=== PATIENT | female | born 1990 | race Caucasian/White ===

== ENCOUNTER 2016-10-18 13:06 | Emergency (ER) | payer OTHER ==
[2016-10-18 13:48] VITALS: BP 113/79
--- NOTE | 2016-10-18 14:37 | UC ---
Knee Pain HPI - HPI Summary HPI Summary: Pt has history of L knee sprain, sees Ortho up in [place]. 4 days ago was stepping out of bed and felt/heard "pop" in L knee, followed by rapid swelling and bruising. Also has numbness and tingling in L [place] and toes. Saw ortho the day it happened and had x-ray. Needs note for missing work yesterday. - History of Current Complaint Chief Complaint: UCLowerExtremity Stated Complaint: KNEE PAIN Time Seen by Provider: 10/18/16 14:10 Hx Obtained From: Patient Hx Last Menstrual Period: tubal ?: No Onset/Duration: Sudden Onset Severity Initially: Mild Severity Currently: Moderate Character: Dull, Aching Aggravating Factor(s): Movement, Weight Bearing Associated Signs And Symptoms: Positive: Swelling, Bruising Able to Bear Weight: Yes - Allergies/Home Medications Allergies/Adverse Reactions: Allergies Allergy/AdvReac Type Severity Reaction Status Date / Time Erythromycin Allergy Mild Rash Verified 10/18/16 13:48 Penicillins Allergy Mild Rash Verified 10/18/16 13:48 Amoxicillin Allergy Rash Verified 10/18/16 13:48 PMH/Surg Hx/FS Hx/Imm Hx GI/ History Of: Denies: Kidney Stones Psychological History Of: Reports: Anxiety, Depression - Surgical History Surgical History: Yes Surgery Procedure, Year, and Place: , tubal ligation, 2 prior pregnancies - Family History Known Family History: Positive: None - reviewed & noncontributory - Social History 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 Lives: With Family Alcohol Use: Occasionally Substance Use Type: None Smoking Status (MU): Never Smoked Tobacco Review of Systems Constitutional: Negative Skin: Negative Eyes: Negative ENT: Negative Respiratory: Negative Cardiovascular: Negative Gastrointestinal: Negative Genitourinary: Negative Motor: Negative Neurovascular: Negative Musculoskeletal: Arthralgia, Edema Neurological: Negative Psychological: Negative All Other Systems Reviewed And Are Negative: Yes Physical Exam Triage Information Reviewed: Yes Appearance: Well-Appearing, No Pain Distress, Obese Vital Signs: Initial Vital Signs Temp 97.3 F 10/18/16 13:42 Pulse 88 10/18/16 13:42 Resp 28 10/18/16 13:42 BP 113/79 10/18/16 13:42 Pulse Ox 100 10/18/16 13:42 Vital Signs Reviewed: Yes Eye Exam: Normal Eyes: Positive: Conjunctiva Clear ENT Exam: Normal ENT: Positive: Normal ENT inspection, Hearing grossly normal, Pharynx normal, TMs normal Dental Exam: Normal Neck exam: Normal Neck: Positive: Supple, Nontender, No Lymphadenopathy Respiratory Exam: Normal Respiratory: Positive: Chest non-tender, Lungs clear, Normal breath sounds, No respiratory distress, No accessory muscle use Cardiovascular Exam: Normal Cardiovascular: Positive: RRR, No Murmur Musculoskeletal Exam: Other - swelling, medial bruising on L knee Musculoskeletal: Positive: Strength Intact, ROM Intact Neurological Exam: Normal Psychological Exam: Normal Skin Exam: Normal Knee Pain Course/Dx - Differential Dx/Diagnosis Provider Diagnoses: L knee sprain Discharge - Discharge Plan Condition: Stable Disposition: HOME Patient Education Materials: Knee Sprain (ED) Forms: *Work Release Referrals: Non Staff,Doctor [Primary Care Provider] - Additional Instructions: Wear your brace, take ibuprofen 600mg three times per day, and follow up with your orthopedist this Monday. Given all the swelling and bruising, you may need another MRI to look at your ligaments.
== END 2016-10-18 14:33 | disposition home or self-care (01) ==
LOC: UCEAST 13:06
DX: M23.8X2 Other internal derangements of left knee (principal)
CPT/HCPCS: 99211; G0463

== ENCOUNTER 2017-04-17 08:04 | Emergency (ER) | payer OTHER ==
[2017-04-17 08:43] VITALS: BP 113/87
== END 2017-04-17 09:01 | disposition left against medical advice (07) ==
LOC: ED 08:04
DX: R07.9 Chest pain, unspecified (principal); Z53.21 Procedure and treatment not carried out due to patient leaving prior to being seen by health care provider
CPT/HCPCS: 93005; 99282

== ENCOUNTER 2017-08-07 10:14 | Emergency (ER) | payer OTHER ==
--- NOTE | 2017-08-07 11:28 | UC ---
Dizzy HPI HPI Summary: Vertigo ( sensation of movement when she looks in different directions) began on Monday [facility] rx with antivert but has not pickle solution maker his medications yet---Began with a pain in sternum and left breast at 3pm today has not change movement, rest ,deep breath or activity does not change the pain---has been on buspar and neurontin for a couple of year - History Of Current Complaint Hx Obtained From: Patient Hx Last Menstrual Period: tubal ?: No Onset/Duration: Gradual Onset, Lasting Days, Worse Since - 3 am today Timing: Constant Severity Initially: Moderate Severity Currently: Moderate Character: Head Spinning, Room Spinning Aggravating Factor(s): Change In Head Position Alleviating Factor(s): Nothing Associated Signs And Symptoms: Positive: Vomiting - one time on monday, Chest Pain <Ayanna Robert - Last Filed: 08/07/17 12:36> <Aparna Lock - Last Filed: 08/07/17 13:58> - History Of Current Complaint Chief Complaint: UCRespiratory Stated Complaint: CHEST PAIN, DIZZINESS Time Seen by Provider: 08/07/17 10:40 - Allergies/Home Medications Allergies/Adverse Reactions: Allergies Allergy/AdvReac Type Severity Reaction Status Date / Time Erythromycin Allergy Mild Rash Verified 04/17/17 08:34 Penicillins Allergy Mild Rash Verified 04/17/17 08:34 Amoxicillin Allergy Rash Verified 04/17/17 08:34 Home Medications: Home Medications metFORMIN* [Glucophage 500 MG TAB *] 500 mg PO BID 08/07/17 [History Confirmed 08/07/17] PMH/Surg Hx/FS Hx/Imm Hx Previously Healthy: No Psychological History: Anxiety - Surgical History Surgical History: Yes Surgery Procedure, Year, and Place: , tubal ligation, 2 prior pregnancies - Family History Known Family History: Positive: None - reviewed & noncontributory - Social History Occupation: Employed Full-time Lives: With Family Alcohol Use: Rare Substance Use Type: None Smoking Status (MU): Never Smoked Tobacco <Ayanna Robert - Last Filed: 08/07/17 12:36> Review of Systems Constitutional: Negative Skin: Negative Eyes: Other - vertigo with eye movement ENT: Negative Respiratory: Negative Cardiovascular: Chest Pain Gastrointestinal: Negative Genitourinary: Negative Motor: Negative Neurovascular: Negative Musculoskeletal: Negative Neurological: Negative Psychological: Negative Is Patient Immunocompromised?: No All Other Systems Reviewed And Are Negative: Yes <Ayanna Robert - Last Filed: 08/07/17 12:36> Physical Exam Triage Information Reviewed: Yes Appearance: No Pain Distress, Well-Nourished Vital Signs: Initial Vital Signs Temp 98.1 F 08/07/17 10:18 Pulse 79 08/07/17 10:18 Resp 18 08/07/17 10:18 BP 118/70 08/07/17 10:18 Pulse Ox 100 08/07/17 10:18 Vital Signs Reviewed: Yes Eye Exam: Normal Eyes: Positive: Conjunctiva Clear, Other: - jt, eomi ENT Exam: Normal ENT: Positive: Normal ENT inspection, Hearing grossly normal, Pharynx normal, TMs normal. Negative: Nasal congestion, Nasal drainage, Tonsillar swelling, Tonsillar exudate, Trismus, Muffled voice, Hoarse voice Dental Exam: Normal Neck exam: Normal Neck: Positive: Supple, Nontender, No Lymphadenopathy Respiratory Exam: Normal Respiratory: Positive: Chest non-tender, Lungs clear, Normal breath sounds, No respiratory distress, No accessory muscle use Cardiovascular Exam: Normal Cardiovascular: Positive: RRR, No Murmur, Pulses Normal, Brisk Capillary Refill Musculoskeletal Exam: Normal Musculoskeletal: Positive: Strength Intact, ROM Intact, No Edema Neurological Exam: Normal Neurological: Positive: Alert, Muscle Tone Normal Psychological Exam: Normal Skin Exam: Normal <Ayanna Robert - Last Filed: 08/07/17 12:36> Vital Signs: Initial Vital Signs Temp 98.1 F 08/07/17 10:18 Pulse 79 08/07/17 10:18 Resp 18 08/07/17 10:18 BP 118/70 08/07/17 10:18 Pulse Ox 100 08/07/17 10:18 <Aparna Lock - Last Filed: 08/07/17 13:58> Diagnostics - Radiology No standard instances Xray Interpretation: No Acute Changes Radiology Interpretation Completed By: Radiologist - EKG Cardiac Rate: NL Cardiac Rhythm: Sinus: Normal - 1 degree av block Ectopy: None ST Segment: Normal <Ayanna Robert - Last Filed: 08/07/17 12:36> Dizzy Course/Dx - Course Course Of Treatment: to ed for further evaluation of chest pain - Differential Dx/Diagnosis Provider Diagnoses: Chest pain <Ayanna Robert - Last Filed: 08/07/17 12:36> Discharge <Ayanna Robert - Last Filed: 08/07/17 12:36> <Aparna Lock - Last Filed: 08/07/17 13:58> - Discharge Plan Condition: Stable Disposition: HOME Patient Education Materials: Chest Pain (ED), Vertigo (ED) Forms: *Work Release Referrals: Laura RHODES,[place] [Primary Care Provider] - Additional Instructions: We are recommending treatment in the emergency department for further evaluation of your chest pain Attestation Statement User Type: Provider - I was available for consult. This patient was seen by the [facility]. The patient was not presented to, seen by, or examined by me. -Alvarado <Aparna Lock - Last Filed: 08/07/17 13:58>
--- NOTE | 2017-08-07 11:51 | RAD ---
HISTORY: Chest pain COMPARISONS: None VIEWS: 4: Frontal dual-energy and lateral views of the chest. FINDINGS: CARDIOMEDIASTINAL SILHOUETTE: The cardiomediastinal silhouette is normal. EUN: The eun are normal. PLEURA: The costophrenic angles are sharp. No pleural abnormalities are noted. LUNG PARENCHYMA: The lungs are clear. ABDOMEN: The upper abdomen is clear. There is no subphrenic gas. BONES AND SOFT TISSUES: No bone or soft tissue abnormalities are noted. OTHER: None. IMPRESSION: NO ACTIVE CARDIOPULMONARY DISEASE.
[2017-08-07 12:23] VITALS: BP 116/80
== END 2017-08-07 12:35 | disposition home or self-care (01) ==
LOC: UCEAST 10:14
DX: R07.9 Chest pain, unspecified (principal); Z88.0 Allergy status to penicillin; Z88.1 Allergy status to other antibiotic agents; R94.31 Abnormal electrocardiogram [ECG] [EKG]
CPT/HCPCS: 71020; 93005; 99212; G0463

== ENCOUNTER 2017-08-07 14:40 | Emergency (ER) | payer OTHER ==
[2017-08-07] MEDS ORDERED: Aspirin Low Dose CHEW TAB* 81 MG PO ONE (16:36)
[2017-08-07 17:30] LABS: Hematocrit 42 % (35-47); Mean Corpuscular HGB Conc 33 g/dl (31-36); Mean Corpuscular Hemoglobin 29 pg (27-31); Mean Corpuscular Volume 87 fL (80-97); Mean Platelet Volume 10 um3 (7.4-10.4); Red Blood Count 4.83 10^6/ul (4.0-5.4); Red Cell Distribution Width 14 % (10.5-15)
[2017-08-07 17:41] LABS: Albumin 4.5 g/dL (3.2-5.2); BUN/Creatinine Ratio 15.7 (8-20); Calcium 9.6 mg/dL (8.6-10.3); EGFR African American 130.1 (>60); EGFR Non-African American 101.1 (>60); Globulin 3.4 g/dL (2-4); Total Bilirubin 0.3 mg/dL (0.2-1.0); Total Protein 7.9 g/dL (6.4-8.9)
[2017-08-07 18:39] LABS: Potassium 3.9 mmol/L (3.5-5.0)
[2017-08-07] MEDS ORDERED: NS 0.9% 1000 ML* 1,000 ML IV ONE (19:41)
[2017-08-07] MEDS ORDERED: Meclizine TAB* 12.5 MG PO ONE (19:41)
--- NOTE | 2017-08-07 20:02 | RAD ---
Indication: Chest pain, dizziness. Comparison: No relevant prior exams available on the [facility] PACS for comparison. Technique: Noncontrast CT vertex of skull through foramen magnum. Report: The sulci, ventricles, and basal cisterns are normal for age. Workman matter white matter differentiation is preserved without evidence for edema. No intra or extra axial hemorrhage, mass, or fluid collection detected. Unremarkable visualized orbital contents. Unremarkable calvarium and skull base. Unremarkable scalp. The visualized paranasal sinuses and mastoid air spaces are clear. IMPRESSION: Negative unenhanced head CT.
[2017-08-07] MEDS ORDERED: Ondansetron ODT TAB* 4 MG PO ONE (21:22)
[2017-08-07] MEDS ORDERED: Ondansetron ODT TAB* 4 MG ONE (21:24)
[2017-08-07 21:30] VITALS: BP 103/51
--- NOTE | 2017-08-08 00:30 | ED ---
Steffen Blum Nikita, scribed for Kraig Melendez MD on 08/07/17 at 1943 . Complex/Multi-Sys Presentation - HPI Summary HPI Summary: This patient is a 27 year old F presenting to ED with a chief complaint of CP since last night. Pt states it has gotten better since staying in the ED. The CC is described as sharp and in the mid chest area near the breast. Symptoms aggravated by sneezing. Symptoms alleviated by antivert (04/03 to 01/02). Patient reports dizziness (uneasy and light-headed; aggravated by moving her eyes; since 3 days ago), fever, nausea, frontal POLK (intermittent since 3 days ago), and hot spells. Patient denies vomiting, ear ache, rhinorrhea, abdominal pain, urinary symptoms and SOB. LMP ended 1.5 weeks ago. [facility] Pt went to [facility] earlier today. - History Of Current Complaint Chief Complaint: EDChestPainROMI Time Seen by Provider: 08/07/17 16:59 Hx Obtained From: Patient Onset/Duration: Sudden Onset, Lasting Days, Still Present Timing: Constant, Days Severity Currently: Moderate Severity Initially: Moderate Location: Pain At: - CP (mid chest near the breast) Character: Sharp Aggravating Factor(s): sneezing Alleviating Factor(s): antivert Associated Signs And Symptoms: Positive: Other - Patient reports dizziness ( uneasy and light-headed; aggravated by moving her eyes; since 3 days ago), fever , nausea, frontal POLK (intermittent since 3 days ago), and hot spells. Patient denies vomiting, ear ache, rhinorrhea, abdominal pain, urinary symptoms and SOB. - Allergies/Home Medications Allergies/Adverse Reactions: Allergies Allergy/AdvReac Type Severity Reaction Status Date / Time Erythromycin Allergy Mild Rash Verified 04/17/17 08:34 Penicillins Allergy Mild Rash Verified 04/17/17 08:34 Amoxicillin Allergy Rash Verified 04/17/17 08:34 PMH/Surg Hx/FS Hx/Imm Hx Respiratory History: Reports: Hx Asthma History: Reports: Hx Kidney Infection - 4 infections Denies: Hx Kidney Stones Psychiatric History: Reports: Hx Anxiety, Hx Depression Denies: Hx Eating Disorder, Hx of Violent Episodes Against Others - Surgical History Surgery Procedure, Year, and Place: , tubal ligation, 2 prior pregnancies Infectious Disease History: No Infectious Disease History: Denies: Hx of Known/Suspected MRSA, Traveled Outside the [place] in Last 30 Days - Family History Known Family History: Positive: Other Family History: stroke - Social History Alcohol Use: Occasionally Hx Substance Use: No Substance Use Type: Reports: None Hx Tobacco Use: No Smoking Status (MU): Never Smoked Tobacco Review of Systems Positive: Fever, Other - hot spells Positive: Other - denies rhinorrhea. Negative: Ear Ache Negative: Shortness Of Breath Positive: Nausea. Negative: Abdominal Pain, Vomiting Positive: no symptoms reported Neurological: Other - dizziness (uneasy and light-headed; aggravated by moving her eyes; since 3 days ago) Positive: Headache - frontal All Other Systems Reviewed And Are Negative: Yes Physical Exam Triage Information Reviewed: Yes Vital Signs On Initial Exam: Initial Vitals Temp Pulse Resp BP Pulse Ox 98.2 F 88 20 114/79 98 08/07/17 15:06 08/07/17 15:06 08/07/17 15:06 08/07/17 15:06 08/07/17 15:06 Vital Signs Reviewed: Yes Appearance: Positive: Well-Appearing, No Pain Distress Skin: Positive: Warm, Skin Color Reflects Adequate Perfusion, Dry Head/Face: Positive: Normal Head/Face Inspection Eyes: Positive: EOMI, YING ENT: Positive: Normal ENT inspection Neck: Positive: Supple, Nontender Respiratory/Lung Sounds: Positive: Clear to Auscultation, Breath Sounds Present Cardiovascular: Positive: RRR Abdomen Description: Positive: Nontender, Soft Bowel Sounds: Positive: Present Musculoskeletal: Positive: Normal, Strength/ROM Intact Neurological: Positive: Normal, Sensory/Motor Intact, Alert, Oriented to Person Place, Time, Other - No focal neurological deficit Psychiatric: Positive: Affect/Mood Appropriate - [place] Coma Scale Coma Scale Total: 15 Diagnostics - Vital Signs Vital Signs Temp Pulse Resp BP Pulse Ox 08/07/17 18:14 86 27 95 08/07/17 15:06 98.2 F 88 20 114/79 98 - Laboratory Lab Results: Lab Results 08/07/17 08/07/17 08/07/17 Range/Units 17:10 17:10 17:10 WBC 9.0 (3.5-10.8) 10^3/ul RBC 4.83 (4.0-5.4) 10^6/ul Hgb 14.0 (12.0-16.0) g/dl Hct 42 (35-47) % MCV 87 (80-97) fL MCH 29 (27-31) pg MCHC 33 (31-36) g/dl RDW 14 (10.5-15) % Plt Count 255 (150-450) 10^3/ul MPV 10 (7.4-10.4) um3 Neut % (Auto) 65.8 (38-83) % Lymph % (Auto) 23.4 L (25-47) % [place] % (Auto) 7.9 (1-9) % Eos % (Auto) 2.2 (0-6) % Baso % (Auto) 0.7 (0-2) % Absolute Neuts (auto) 5.9 (1.5-7.7) 10^3/ul Absolute Lymphs (auto) 2.1 (1.0-4.8) 10^3/ul Absolute Monos (auto) 0.7 (0-0.8) 10^3/ul Absolute Eos (auto) 0.2 (0-0.6) 10^3/ul Absolute Basos (auto) 0.1 (0-0.2) 10^3/ul Absolute Nucleated RBC 0 10^3/ul Nucleated RBC % 0.1 D-Dimer, Quantitative (Less Than 230) ng/mL Sodium 136 (133-145) mmol/L Potassium 3.9 (3.5-5.0) mmol/L Chloride 104 (101-111) mmol/L Carbon Dioxide 25 (22-32) mmol/L Anion Gap 7 (2-11) mmol/L BUN 11 (6-24) mg/dL Creatinine 0.70 (0.51-0.95) mg/dL Est GFR ( Amer) 130.1 (>60) Est GFR (Non-Af Amer) 101.1 (>60) BUN/Creatinine Ratio 15.7 (8-20) Glucose 96 (70-100) mg/dL Lactic Acid 1.5 (0.5-2.0) mmol/L Calcium 9.6 (8.6-10.3) mg/dL Total Bilirubin 0.30 (0.2-1.0) mg/dL AST 37 (13-39) U/L ALT 66 H (7-52) U/L Alkaline Phosphatase 33 L (34-104) U/L Troponin I 0.00 (<0.04) ng/mL Total Protein 7.9 (6.4-8.9) g/dL Albumin 4.5 (3.2-5.2) g/dL Globulin 3.4 (2-4) g/dL Albumin/Globulin Ratio 1.3 (1-3) //17 Range/Units 17:10 WBC (3.5-10.8) 10^3/ul RBC (4.0-5.4) 10^6/ul Hgb (12.0-16.0) g/dl Hct (35-47) % MCV (80-97) fL MCH (27-31) pg MCHC (31-36) g/dl RDW (10.5-15) % Plt Count (150-450) 10^3/ul MPV (7.4-10.4) um3 Neut % (Auto) (38-83) % Lymph % (Auto) (25-47) % [place] % (Auto) (1-9) % Eos % (Auto) (0-6) % Baso % (Auto) (0-2) % Absolute Neuts (auto) (1.5-7.7) 10^3/ul Absolute Lymphs (auto) (1.0-4.8) 10^3/ul Absolute Monos (auto) (0-0.8) 10^3/ul Absolute Eos (auto) (0-0.6) 10^3/ul Absolute Basos (auto) (0-0.2) 10^3/ul Absolute Nucleated RBC 10^3/ul Nucleated RBC % D-Dimer, Quantitative < 200 (Less Than 230) ng/mL Sodium (133-145) mmol/L Potassium (3.5-5.0) mmol/L Chloride (101-111) mmol/L Carbon Dioxide (22-32) mmol/L Anion Gap (2-11) mmol/L BUN (6-24) mg/dL Creatinine (0.51-0.95) mg/dL Est GFR ( Amer) (>60) Est GFR (Non-Af Amer) (>60) BUN/Creatinine Ratio (8-20) Glucose (70-100) mg/dL Lactic Acid (0.5-2.0) mmol/L Calcium (8.6-10.3) mg/dL Total Bilirubin (0.2-1.0) mg/dL AST (13-39) U/L ALT (7-52) U/L Alkaline Phosphatase (34-104) U/L Troponin I (<0.04) ng/mL Total Protein (6.4-8.9) g/dL Albumin (3.2-5.2) g/dL Globulin (2-4) g/dL Albumin/Globulin Ratio (1-3) Result Diagrams: 08/07/17 17:10 08/07/17 17:10 Lab Statement: Any lab studies that have been ordered have been reviewed, and results considered in the medical decision making process. - CT Brain CT CT Interpretation Completed By: Radiologist - Negative unenhanced head CT. ED physician has reveiwed this radiology report and agrees. - EKG 1535 Cardiac Rate: NL EKG Rhythm: Sinus Rhythm - [address] Segment: Normal Ectopy: None EKG Interpretation: AK interval borderline prolongation at 207 Re-Evaluation - Re-Evaluation First Eval Re-Evaluation Time: 21:19 Comment: Pt wanted to leave prior to re-eval. Pt reports she is still dizzy. Discussed with pt of a possible stroke and she needs an MRI to be sure. Complex Multi-Symp Course/Dx Assessment/Plan: This patient is a 27 year old F presenting to ED with a chief complaint of CP since last night. Pt states it has gotten better since staying in the ED. The CC is described as sharp and in the mid chest area near the breast. Symptoms aggravated by sneezing. Symptoms alleviated by antivert (04/03 to 01/02). Patient reports dizziness (uneasy and light-headed; aggravated by moving her eyes; since 3 days ago), fever, nausea, frontal POLK (intermittent since 3 days ago), and hot spells. Patient denies vomiting, ear ache, rhinorrhea , abdominal pain, urinary symptoms and SOB. Medications reviewed. Allergies noted. Brain CT reveals negative unenhanced head CT. ED physician has reveiwed this radiology report and agrees. EKG reveals NSR at 78 bpm, nml ST, no ectopy, and AK interval borderline prolongation at 207. In the ED course, pt was given fluids, antivert, and ASA. Pt will be discharged. Pt is agreeable with this plan. DISCUSSED RESULTS WITH PATIENT. STILL HAS DIZZINESS AFTER MECLIZINE. NO FOCAL NEUROLOGIC DEFICIT. DISCUSSED THAT DIZZINESS CAN BE SYMPTOM OF A STROKE AND AN MRI BRAIN MAY NEED TO BE DONE TO FIND THE STROKE. PATIENT WISHED TO GO HOME. RX ZOFRAN FOR THE NAUSEA. F/U WITH PMD; RETURN IF WORSE OR CONCERNS. I DISCUSSED RETURNING TO THE ED IF THE DIZZINESS DOES NOT RESOLVE OR WORSENS FOR MRI/FURTHER EVALUATION. - Diagnoses Provider Diagnoses: Chest pain, Dizziness Discharge - Discharge Plan Condition: Stable Disposition: HOME Prescriptions: Ondansetron ODT TAB* [Zofran 4 MG Odt TAB*] 4 mg PO Q6H PRN #10 tab.odt PRN Reason: Nausea Patient Education Materials: Chest Pain (ED), Dizziness (ED) Referrals: Laura RHODES,[place] [Primary Care Provider] - Additional Instructions: FOLLOW UP WITH YOUR DOCTOR. IF YOUR DIZZINESS DOES NOT IMPROVE, YOU MAY NEED A BRAIN MRI TO EVALUATE FOR A STROKE. RETURN TO THE EMERGENCY DEPARTMENT FOR ANY WORSENING OF YOUR CONDITION; CONTINUED OR WORSE DIZZINESS, CHEST PAIN, SHORTNESS OF BREATH, WEAKNESS, NUMBNESS OR QUESTIONS OR CONCERNS. The documentation as recorded by the Steffen lenz Nikita accurately reflects the service I personally performed and the decisions made by me, Kraig Melendez MD.
== END 2017-08-07 21:30 | disposition home or self-care (01) ==
LOC: ED 14:40
DX: R07.9 Chest pain, unspecified (principal); R42 Dizziness and giddiness; Z88.1 Allergy status to other antibiotic agents; Z88.0 Allergy status to penicillin; J45.909 Unspecified asthma, uncomplicated; R11.0 Nausea
CPT/HCPCS: 36415; 70450; 80053; 83605; 84484; 85025; 85379; 87040; 93005; 96360; 99283; A9270-GY

== ENCOUNTER 2017-09-13 11:21 | Emergency (ER) | payer OTHER ==
[2017-09-13 11:34] VITALS: BP 116/75
[2017-09-13] MEDS ORDERED: Ketorolac INJ* 60 MG/2 ML VIAL IM ONE (11:47)
[2017-09-13] MEDS ORDERED: Ondansetron ODT TAB* 4 MG PO ONE (11:48)
--- NOTE | 2017-09-13 11:49 | UC ---
Headache HPI - HPI Summary HPI Summary: has her usual migraine head ache--no fevers - History Of Current Complaint Hx Obtained From: Patient Hx Last Menstrual Period: 08/14/17 ?: No Onset/Duration: Gradual Onset, Still Present Initially Headache Was: Moderate Currently Pain Is: Moderate Timing: Constant Character: Throbbing, Typical Headache, Migraine Location of Headache: Diffuse Aggravating Factor(s): Nothing Allevating Factor(s): Nothing Associated Signs And Symptoms: Positive: Nausea <Ayanna Robert - Last Filed: 09/14/17 22:24> <Aparna Lock - Last Filed: 09/15/17 08:29> - History Of Current Complaint Chief Complaint: UCHeadache Stated Complaint: HEADACHE Time Seen by Provider: 09/13/17 11:42 - Allergies/Home Medications Allergies/Adverse Reactions: Allergies Allergy/AdvReac Type Severity Reaction Status Date / Time Erythromycin Allergy Mild Rash Verified 09/13/17 11:30 Penicillins Allergy Mild Rash Verified 09/13/17 11:30 Amoxicillin Allergy Rash Verified 09/13/17 11:30 PMH/Surg Hx/FS Hx/Imm Hx Previously Healthy: No Endocrine History: Diabetes Neurological History: Migraine - Surgical History Surgical History: Yes Surgery Procedure, Year, and Place: , tubal ligation, 2 prior pregnancies - Family History Known Family History: Positive: None - reviewed & noncontributory, Other Family History: stroke - Social History Occupation: Employed Full-time Lives: With Family Alcohol Use: Occasionally Substance Use Type: None Smoking Status (MU): Never Smoked Tobacco <Ayanna Robert - Last Filed: 09/14/17 22:24> Review of Systems Constitutional: Negative Skin: Negative Eyes: Negative ENT: Negative Respiratory: Negative Cardiovascular: Negative Gastrointestinal: Nausea Genitourinary: Negative Motor: Negative Neurovascular: Negative Musculoskeletal: Negative Neurological: Headache Psychological: Negative Is Patient Immunocompromised?: No All Other Systems Reviewed And Are Negative: Yes <Ayanna Robert - Last Filed: 09/14/17 22:24> Physical Exam Triage Information Reviewed: Yes Appearance: Well-Appearing, Well-Nourished, Pain Distress - mild Vital Signs: Initial Vital Signs Temp 97.1 F 09/13/17 11:30 Pulse 78 09/13/17 11:30 Resp 16 09/13/17 11:30 BP 116/75 09/13/17 11:30 Pulse Ox 99 09/13/17 11:30 Vital Signs Reviewed: Yes Eye Exam: Normal Eyes: Positive: Conjunctiva Clear ENT Exam: Normal ENT: Positive: Normal ENT inspection, Hearing grossly normal, Pharynx normal, TMs normal. Negative: Nasal congestion, Nasal drainage, Tonsillar swelling, Tonsillar exudate, Trismus, Muffled voice, Hoarse voice Neck exam: Normal Neck: Positive: Supple, Nontender, No Lymphadenopathy Respiratory Exam: Normal Respiratory: Positive: Chest non-tender, Lungs clear, Normal breath sounds, No respiratory distress, No accessory muscle use Cardiovascular Exam: Normal Cardiovascular: Positive: RRR, No Murmur, Pulses Normal, Brisk Capillary Refill Abdominal Exam: Normal Abdomen Description: Positive: Nontender, No Organomegaly, Soft Musculoskeletal Exam: Normal Musculoskeletal: Positive: Strength Intact, ROM Intact Neurological Exam: Normal Neurological: Positive: Alert, Muscle Tone Normal Psychological Exam: Normal Skin Exam: Normal <Ayanna Robert - Last Filed: 09/14/17 22:24> Vital Signs: Initial Vital Signs Temp 97.1 F 09/13/17 11:30 Pulse 78 09/13/17 11:30 Resp 16 09/13/17 11:30 BP 116/75 09/13/17 11:30 Pulse Ox 99 09/13/17 11:30 <Aparna Lock - Last Filed: 09/15/17 08:29> Re-Evaluation - Re-Evaluation First Eval Change: Improved - feeling better- <Ayanna Robert - Last Filed: 09/14/17 22:24> Headache Course/Dx - Course Course Of Treatment: home rest insease fluids follow with pcp - Differential Dx/Diagnosis Provider Diagnoses: resolving headache <Ayanna Robert - Last Filed: 09/14/17 22:24> Discharge <Ayanna Robert - Last Filed: 09/14/17 22:24> <Aparna Lock - Last Filed: 09/15/17 08:29> - Discharge Plan Condition: Stable Disposition: HOME Patient Education Materials: Acute Headache (ED) Referrals: Keith Vazquez MD [Primary Care Provider] - If Needed Attestation Statement User Type: Provider - I was available for consult. This patient was seen by the [facility]. The patient was not presented to, seen by, or examined by me. -Alvarado <Aparna Lock - Last Filed: 09/15/17 08:29>
== END 2017-09-13 12:40 | disposition home or self-care (01) ==
LOC: UCEAST 11:21
DX: G43.909 Migraine, unspecified, not intractable, without status migrainosus (principal); E11.9 Type 2 diabetes mellitus without complications; Z88.3 Allergy status to other anti-infective agents; Z88.0 Allergy status to penicillin
CPT/HCPCS: 99211; A9270-GY; G0463; J1885

== ENCOUNTER 2017-12-05 09:24 | Emergency (ER) | payer OTHER ==
--- OUTSIDE RECORDS SUMMARY | 2017-12-05 09:45 | XMS REPORT ---
:1990 External Reference #:[id number] Author Organization [facility] Address [address] [place] [address] Phone [phone] Care Team Providers Name Role Phone Keith Vazquez MD Care Team Information Tobacco Flavorer Unavailable Keith Vazquez MD Primary Care Physician Unavailable Payers Type Date Identification Numbers Payment Provider Subscriber Commercial Policy Number: [id number] [facility] Tatum Cota PayID: [id number] [address] [place] [address] Problems Date Description Provider Status Onset: 12/01/2017 Uncomplicated moderate Hayder Erickson MD Active persistent asthma Onset: 03/08/2017 Exacerbation of moderate Ariana Smithr, Active persistent asthma RPA-C Onset: 03/07/2016 Mild intermittent asthma, Ariana Santosermacher, Active uncomplicated RPA-C Onset: 03/07/2016 Chronic allergic conjunctivitis Ariana Santosermacher, Active RPA-C Onset: 03/07/2016 Allergic rhinitis Ariana Santosermacher, Active RPA-C Onset: 03/07/2016 Allergic rhinitis due to pollen Ariana Barahona, Active RPA-C Social History Type Date Description Comments Smoking Patient has never smoked Allergies, Adverse Reactions, Alerts Date Description Reaction Status Severity Comments 03/08/2017 Amoxicillin active 03/08/2017 Penicillin active Medications Medication Date Status Form Strength Qnty SIG Indications Ordering Provider Tayler Toro 12/01 Active Aerosol 200-25mcg 180un inhale J30.1 Christopher /2018 /Inh its one puff Nabeel Erickson MD once a day Grastek 12/01 Active Tablets 2800Bau 30tab place 1 J30.1 Sub s tablet Nabeel Erickson MD under tongue by transling ual route daily Epipen 2-Angelito 12/01 Active Solution 0.3mg/0.3 2unit as J30.1 Auto-Injec ML s directed Nabeel Erickson MD t Ventolin HFA 03/08 Active Aerosol 108(90Bas 18gm inhale 2 J45.41 e) puffs by Nabeel Erickson MD mcg/Act inhalatio n route q4 hours as needed Levocetirizine 03/08 Active Tablets 5mg 30tab Take 1 J30.1 Dihydrochloride s Tablet By Nabeel Erickson MD Mouth Once Daily At Bedtime Ketotifen 03/17 Active Solution 0.025% 5ml Instill H10.45 Fumarate one drop Nabeel Erickson MD into affected eye(s) twice a day as needed. Proair HFA 03/07 Active Aerosol 108(90Bas 8.500 Inhale 2 J45.20 e) gm puffs Q4 Nabeel Erickson MD mcg/Act hours as needed Fluticasone 03/07 Active Suspension 50mcg/Act 1bott [place] 2 J30.1 Propionate le sprays in Nabeel Erickson MD each nostril once daily Gabapentin Active Capsules 100mg 2 cap PO Unknown /0000 3x a day Effexor XR Active Caps ER 37.5mg 1 cap Unknown /0000 24HR with food PO 2x a day Buspirone HCL Active Tablets 30mg 1 tab PO Unknown /0000 2x a day Xanax 00 Active Tablets 0.25mg 1 tab PO Unknown /0000 Q 6hrs prn Metformin HCL Active Tablets 500mg take 1 tablet by mouth twice a day with meals Vitamin D Active Tablets 1000Unit 1 by Unknown (Cholecalciferol /0000 mouth ) every day Ibuprofen Active Tablets 400mg 1 by Unknown /0000 mouth every 4-6 hours as needed Meclizine HCL Active Tablets 12.5mg 1 tab PO Unknown /0000 prn Azelastine HCL 03/07 Hx Solution 0.05% 6ml Instill 1 H10.45 (Ophthalmic) drop in Nabeel Erickson MD - affected 03/17 eye times a day as needed. Fexofenadine HCL 03/07 Hx Tablets 180mg 30tab Take one J30.1 s tablet po Nabeel Erickson MD - daily 03/08 Prednisone 03/07 Hx Tablets 10mg 30tab Take 3 J30.1 s tablets Nabeel Erickson MD - by mouth 03/08 twice a day x5 days. Take with food. Medications Administered in Office Medication Date Status Form Strength Qnty SIG Indications Ordering Provider Celestone (3 Administered Injection Ariana S. MG) 017 Fenstermac her, RPA-C Therapeutic, Administered Injection Ariana S. Prophylactic Or 017 Fenstermac Diagnostic her, RPA-C Injection Subq/Im Vital Signs Date Vital Result Comment 12/01/2017 Height 64 inches 5'4" Weight 239.00 lb BMI (Body Mass Index) 41.0 kg/m2 Heart Rate 76 /min Body Temperature 96.8 F O2 % BldC Oximetry 96 % 03/08/2017 BP Systolic 122 mmHg BP Diastolic 80 mmHg Height 64 inches 5'4" Weight 231.00 lb BMI (Body Mass Index) 39.6 kg/m2 Heart Rate 88 /min Respiratory Rate 16 /min Body Temperature 98.4 F O2 % BldC Oximetry 98 % 03/07/2016 Heart Rate 88 /min Respiratory Rate 14 /min 2015 BP Systolic 134 mmHg BP Diastolic 85 mmHg Height 64 inches Weight 200.00 lb Heart Rate 112 /min Results Test Date Test Result H/L Range Note Order 12/01/2017 Challenge Influenza <pending> Epinephrine Injector Training <pending> Nitric Oxide <pending> PFT Supplies <pending> PFT With Bronchodilator <pending> Procedures Date CPT Code Description Status 12/01/2017 17832 Education/Training PT Self-Management Each 30Minutes Completed Indiv PT 12/01/2017 15498 Ingestion Challenge Test Sequential & Incremental Completed 12/01/2017 51600 Nitric Oxide Gas Determination Completed 12/01/2017 87977 Bronchodilation Responsiveness Spirometry Pre/Post Completed Bronchodil Adm 03/08/2017 43903 Therapeutic, Prophylactic Or Diagnostic Injection Completed Subq/Im 03/08/2017 69613 Nitric Oxide Gas Determination Completed 03/08/2017 29749 Bronchodilation Responsiveness Spirometry Pre/Post Completed Bronchodil Adm Encounters Type Date Location Provider CPT E/M Dx Office Visit 03/08/2017 10:00a [facility] Mcge[facility] 14987 J45.41 J30.1 J30.89 H10.45 Office Visit 03/07/2016 2:30p ALYSSIA Mcgee 98001 J30.1 J30.89 H10.45 J45.20 Plan of Care 12/01/2017 - Hayder Erickson MDJ30.1 Allergic rhinitis due to pollenNew Medication:Breo Ellipta 200-25 mcg/InhGrastek 2800 BauEpipen 2-Angelito 0.3 mg/ 0.3MLJ30.89 Other allergic vambdzeiY26.40 Moderate persistent asthma, uncomplicated
--- OUTSIDE RECORDS SUMMARY | 2017-12-05 09:46 | XMS REPORT ---
:1990 External Reference #:[id number] Author Organization [facility] Address [address] [address] Phone [phone] Care Team Providers Name Role Phone Barber Lara PA Care Team Information Test Evaluator Unavailable James Logan MD Primary Care Physician Unavailable Payers Type Date Identification Numbers Payment Provider Subscriber Commercial Policy Number: [id number] Ayden Cota PayID: [id number] [address] [place] [address] Workers Compensation Effective: Policy Number: Mecca Cota 2017 [id number] Onset: 2017 PayID: [id number] [address] [place] [address] Problems Date Description Provider Status Onset: 08/09/2017 Mild depression Sadie Virk NP Active Onset: 11/06/2017 Body mass index 30+ - obesity James Logan M.D.,FACP Active Onset: 08/09/2017 Type 2 diabetes mellitus Sadie Virk NP Inactive Inactive: 11/06/2017 Onset: 07/20/2017 Difficulty breathing Carmela Brito MD Resolved Resolved: 11/06/2017 Family History Date Family Member(s) Problem(s) Comments Father Diabetes Mother Thyroid Disease Siblings 1 older brother, had stroke at age 16 Social History Type Date Description Comments Marital Status Single Lives With Daughters 2 Lives With Son Occupation [employer] Cigarette Use Never Smoked Cigarettes ETOH Use Occasionally consumes alcohol Smoking Patient has never smoked Recreational Drug Use Denies Drug Use Daily Caffeine Does Not Consume Caffeine Exercise Type/Frequency Exercises regularly 3x week dance General Hx Text 3 kids, age 8 and 4 Allergies, Adverse Reactions, Alerts Date Description Reaction Status Severity Comments 07/20/2017 Amoxicillin active 07/20/2017 Penicillin active 08/09/2017 Zithromax active Mild to Moderate 10/23/2017 Bactrim active Moderate to Severe 10/23/2017 Erythromycin active Moderate to Severe Medications Medication Date Status Form Strength Qnty SIG Indications Ordering Provider Vitamin B-12 11/06 Active Tablets 250mcg 1 by mouth D84.9 [facility] every day Vishnu Logan M.D.,FACP Naproxen 08/31 Active Tablets 375mg 60tab 1 by mouth M25.[address] wood twice a day Aide Vazquez Gabapentin Active Capsules 100mg Take Two Unknown /0000 Capsules By Mouth Three Times A Day Buspirone HCL Active Tablets 30mg Take 1 Unknown /0000 Tablet By Mouth Twice Daily Levocetirizine Active Tablets 5mg Take 1 Unknown Dihydrochloride /0000 Tablet By Mouth Once Daily At Bedtime Venlafaxine HCL Active Caps ER 37.5mg Take One Unknown ER /0000 24HR Capsule By Mouth Twice A Day With Food Metformin HCL Active Tablets 500mg 1 tab bid [place] / , BETITO Blandon Alprazolam Active Tablets 0.25mg one by mouth Unknown 0000 up to three times daily as needed for anxiety Tamiflu 10/19 Hx Capsules 75mg 7caps one daily for 7 days Virk, - CHARTER DRIVER 10/26 Guaifenesin ac 08/24 Hx Syrup 100-10mg/ 180ml 5-10 R05 5ML milliliters Virk, - by mouth [employer] DRIVER 09/03 every hours as needed cough, use at night Guaifenesin ac 08/24 Hx Syrup 100-10mg/ 180ml 5-10 R05 Sadie 5ML milliliters Virk, - by mouth [employer] DRIVER 11/06 every hours as needed cough, use at night Medications Administered in Office Medication Date Status Form Strength Qnty SIG Indications Ordering Provider Hepatitis Administered Injection Unknown B,Unspecified 997 Hepatitis Administered Injection Unknown B,Unspecified 996 Polio,Unspecif 02/23/1 Administered Injection Unknown ied 993 Hib,Unspecifie Administered Injection Unknown d 993 Polio,Unspecif Administered Injection Unknown ied 992 Hib,Unspecifie Administered Injection Unknown d 992 Hib,Unspecifie Administered Injection Unknown d 992 Polio,Unspecif Administered Injection Unknown ied 992 Polio,Unspecif Administered Injection Unknown ied 991 Hib,Unspecifie Administered Injection Unknown d 991 Hepatitis Administered Injection Unknown B,Unspecified 991 Polio,Unspecif Administered Injection Unknown ied 991 Hib,Unspecifie Administered Injection Unknown d 991 Immunizations CPT Code Status Date Vaccine Lot # [id number] Given 01/31/1996 Tdap - Tetanus/Diptheria/Acellular Pertussis 16123 Given 01/31/1996 Measles Mumps And Rubella MMR 35847 Given 11/17/1992 Tdap - Tetanus/Diptheria/Acellular Pertussis 40537 Given 07/14/1992 Measles Mumps And Rubella MMR 79061 Given 1991 Tdap - Tetanus/Diptheria/Acellular Pertussis 92751 Given 1991 Tdap - Tetanus/Diptheria/Acellular Pertussis 59710 Given 1991 Tdap - Tetanus/Diptheria/Acellular Pertussis Vital Signs Date Vital Result Comment 11/06/2017 Weight 240.00 lb Heart Rate 100 /min BP Systolic 118 mmHg BP Diastolic 76 mmHg Body Temperature 98.8 F O2 % BldC Oximetry 98 % 10/23/2017 Weight 239.00 lb Heart Rate 77 /min BP Systolic Sitting 112 mmHg BP Diastolic Sitting 72 mmHg Body Temperature 98.6 F O2 % BldC Oximetry 98 % 08/31/2017 Weight 239.00 lb Heart Rate 92 /min BP Systolic 124 mmHg BP Diastolic 80 mmHg Body Temperature 97.8 F O2 % BldC Oximetry 97 % 08/24/2017 Weight 236.00 lb Heart Rate 84 /min Body Temperature 98.4 F O2 % BldC Oximetry 98 % 08/09/2017 Heart Rate 92 /min BP Systolic Sitting 110 mmHg BP Diastolic Sitting 66 mmHg Body Temperature 97.9 F O2 % BldC Oximetry 99 % 07/20/2017 Height 64 inches 5'4" Weight 263.00 lb Heart Rate 76 /min BP Systolic Sitting 116 mmHg BP Diastolic Sitting 68 mmHg Respiratory Rate 14 /min O2 % BldC Oximetry 99 % BMI (Body Mass Index) 45.1 kg/m2 Neck Circumference in inches 16.5 Results Description No Information Procedures Description No Information Encounters Type Date Location Provider CPT E/M Dx Office Visit 10/23/2017 [facility] Sadie Virk, 17267 B34.9 10:10a - [address] CHARTER DRIVER Office Visit 08/31/2017 [facility] Keith Vazquez, [address]95 M25.531 10:00a - [address] M.D. Office Visit 08/24/2017 [facility] Sadie Virk, [address]3351 R05 9:50a - [address] CHARTER DRIVER Office Visit 08/09/2017 [facility] Sadie Virk, 60641 H81.11 11:30a - [address] CHARTER DRIVER Office Visit 07/20/2017 [facility] [place] [address] R06.83 8:45a [facility] E66.01 Plan of Care 11/06/2017 - James Logan M.D.,FACPD84.9 Immunodeficiency, unspecifiedNew Medication:Vitamin B-12 250 mcgComments:It is certainly possible to have several viruses all winter. Will assess for immune issues with basic tests that we can through this office. We could also ask for opinion from Dr. Erickson. Overall, important to get enough sleep, eat healthy, and wash hands at work.
--- OUTSIDE RECORDS SUMMARY | 2017-12-05 09:46 | XMS REPORT ---
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 Unavailable Keith Vazquez MD Primary Care Physician Unavailable Payers Type Date Identification Numbers Payment Provider Subscriber Commercial Policy Number: [id number] [facility] Tatum Cota PayID: [id number] [address] [place] [address] Problems Date Description Provider Status Onset: 03/08/2017 Exacerbation of moderate Ariana Smithr, Active persistent asthma RPA-C Onset: 03/07/2016 Mild intermittent asthma, Ariana SLindsay Fenstermacher, Active uncomplicated RPA-C Onset: 03/07/2016 Chronic allergic conjunctivitis Ariana Santosermacher, Active RPA-C Onset: 03/07/2016 Allergic rhinitis Ariana Santosermacher, Active RPA-C Onset: 03/07/2016 Allergic rhinitis due to pollen Ariana Santosermacher, Active RPA-C Social History Type Date Description Comments Smoking Patient has never smoked Allergies, Adverse Reactions, Alerts Date Description Reaction Status Severity Comments 03/08/2017 Amoxicillin active 03/08/2017 Penicillin active Medications Medication Date Status Form Strength Qnty SIG Indications Ordering Provider Ventolin HFA 03/08 Active Aerosol 108(90Bas 18gm Inhale 2 J45.41 oph /2016 e) puffs by Nabeel Erickson MD mcg/Act inhalatio n route Q4 hours as needed Levocetirizine 03/08 Active Tablets 5mg 30tab Take 1 J30.1 Christopher Dihydrochloride /2016 s Tablet By Nabeel Erickson MD Mouth Once Daily At Bedtime Ketotifen 03/17 Active Solution 0.025% 5ml Instill H10.45 Christopher Fumarate one drop Nabeel Erickson MD into affected eye(s) twice a day as needed. Proair HFA 03/07 Active Aerosol 108(90Bas 8.500 Inhale 2 J45.20 e) gm puffs Q4 Nabeel Erickson MD mcg/Act hours as needed Fluticasone 03/07 Active Suspension 50mcg/Act 1bott [place] 2 J30.1 opher Propionate le sprays in Nabeel Erickson MD each nostril once daily Gabapentin Active Capsules 100mg 2 cap PO Unknown /0000 3x a day Effexor XR Active Caps ER 37.5mg 1 cap Unknown /0000 24HR with food PO 2x a day Buspirone HCL Active Tablets 30mg 1 tab PO Unknown /0000 2x a day Xanax Active Tablets 0.25mg 1 tab PO Unknown /0000 Q 6hrs prn Metformin HCL Active Tablets 500mg take 1 Unknown /0000 tablet by mouth twice a day with meals Vitamin D Active Tablets 1000Unit 1 by Unknown (Cholecalciferol /0000 mouth ) every day Ibuprofen Active Tablets 400mg 1 by Unknown /0000 mouth every 4-6 hours as needed Meclizine HCL Active Tablets 12.5mg 1 tab PO Unknown /0000 prn Azelastine HCL 03/07 Hx Solution 0.05% 6ml Instill 1 H10.45 Christopher (Ophthalmic) drop in Nabeel Erickson MD - affected 03/17 eye times a day as needed. Fexofenadine HCL 03/07 Hx Tablets 180mg 30tab Take one J30.1 s tablet po Nabeel Erickson MD - daily 03/08 Prednisone 03/07 Hx Tablets 10mg 30tab Take 3 J30.1 oph s tablets Nabeel Erickson MD - by mouth 03/08 twice a /2016 day x5 days. Take with food. Medications Administered in Office Medication Date Status Form Strength Qnty SIG Indications Ordering Provider Celestone (3 Administered Injection Ariana S. MG) 017 Fenstermac her, RPA-C Therapeutic, Administered Injection Raiana S. Prophylactic Or 017 Fenstermac Diagnostic her, [...] 200.00 lb Heart Rate 112 /min Results Description No Information Procedures Date CPT Code Description Status 03/08/2017 85891 Therapeutic, Prophylactic Or Diagnostic Injection Completed Subq/Im 03/08/2017 70833 Nitric Oxide Gas Determination Completed 03/08/2017 21162 Bronchodilation Responsiveness Spirometry Pre/Post Completed Bronchodil Adm Encounters Type Date Location Provider CPT E/M Dx Office Visit 03/08/2017 10:00a [facility] Mcge[facility] 73190 J45.41 J30.1 J30.89 H10.45 Office Visit 03/07/2016 2:30p ALYSSIA Mcgee 44886 J30.1 J30.89 H10.45 J45.20 Plan of Care 03/08/2017 - Ariana Barahona RPA-CJ45.41 Moderate persistent asthma with (acute) exacerbationNew Medication:Ventolin HFA 108(90 Base) mcg/ ActComments:Patient with allergic rhinitis exacerbation. Today's PFT is within normal limits. Exhaled Nitric Oxide level is significantly elevated at 116ppb. I will give Celestone IM injection today in the office.I will start Dulera 200/ 5 as daily prophylaxis of the chest. Continue Ventolin Q4 hours as needed. Ihave advised Gaby to use Dulera samples over the next month. She can discontinue the ICS/LABA once grass pollen levels have decreased.Follow up: October 2017 - w/PFT and NIOX prior to auytsF92.1 Allergic rhinitis due to pollenNew Medication:Levocetirizine Dihydrochloride 5 mgComments:Patient is having an allergic rhinitis exacerbation. I will give IM Celestone injection today in theoffice. I will continue Fluticasone nasal spray. I will give Xyzal for breakthrough nasal allergy symptoms. I have reviewed RAST results that were ordered in 2016. Gaby is extremely reactive to grass pollen and weed pollens. She is less reactive to dog. I have discussed environmental controls for pollen. Gaby would be an excellent candidate for Grastek SLIT. I will have her return in October 2017 to discuss treatment with Grastek.Follow up:October 2017 - Start Grastek SLITJ30.89 Other allergic rhinitisComments:Minimize exposure to dogs as much as possible.H10.45 Other chronic allergic conjunctivitisComments:I will renew Ketotifen drops to use as needed for breakthrough eye allergy symptoms.
--- NOTE | 2017-12-05 10:16 | ED ---
Allergic Reaction/Systemic - HPI Summary HPI Summary: 27 female presents to ED with complaints of administering epinephrine after experiencing an anaphylactic reaction to a medication. Patient is trialing an allergy medication that contains a grass allergen, by her teaching artist, Dr Erickson, to help eliminate her allergies. States this is the third pill she took. The first one and second she did not have symptoms, other than a small blister on her lip last night. Decided to take the third dose today while surrounded by nurses, as she works in [employer] and began having difficulty breathing, lip swelling , throat swelling/tightness and feeling itchy. Administered epinephrine at 9am. She does have one left at home. Is currently asymptomatic and is feeling fine without complaint. Denies difficulty breathing and rash. No chest pain, lightheadedness, tingling, paleness, or headache. PMHx includes allergies, asthma and anxiety/depression. Takes xyzal daily at bedtime. - History of Current Complaint Chief Complaint: EDAllergicReaction Time Seen by Provider: 12/05/17 09:29 Hx Obtained From: Patient Hx Last Menstrual Period: 08/14/17 Onset/Duration: Sudden Onset, Started hours ago, Resolved Timing: Lasting Seconds Severity Initially: Severe Severity Currently: None Pain Intensity: 0 Pain Scale Used: 0-10 Numeric Character: Swelling, Pruritus Aggravating Factor(s): Other - antihistamine medication, trialing Alleviating Factor(s): Epinephrine Associated Signs And Symptoms: Positive: Difficulty Breathing, Rash, Throat Tightening - Related Hx Possible Reaction To: Medications - Allergies/Home Medications Allergies/Adverse Reactions: Allergies Allergy/AdvReac Type Severity Reaction Status Date / Time MS Erythromycin Allergy Mild Rash Verified 09/13/17 11:30 [Erythromycin] MS Penicillins [Penicillins] Allergy Mild Rash Verified 09/13/17 11:30 MS Amoxicillin [Amoxicillin] Allergy Rash Verified 09/13/17 11:30 PMH/Surg Hx/FS Hx/Imm Hx Endocrine/Hematology History: Denies: Hx Diabetes Cardiovascular History: Denies: Hx Hypertension Respiratory History: Reports: Hx Asthma, Hx Seasonal Allergies History: Reports: Hx Kidney Infection - 4 infections Denies: Hx Kidney Stones Psychiatric History: Reports: Hx Anxiety, Hx Depression Denies: Hx Eating Disorder, Hx of Violent Episodes Against Others - Surgical History Surgery Procedure, Year, and Place: , tubal ligation, 2 prior pregnancies - Immunization History Immunizations Up to Date: Yes Infectious Disease History: Yes Infectious Disease History: Denies: Hx of Known/Suspected MRSA, History Other Infectious Disease, Traveled Outside the [place] in Last 30 Days - Family History Known Family History: Positive: None - reviewed & noncontributory, Other Family History: stroke - Social History Alcohol Use: Occasionally Hx Substance Use: No Substance Use Type: Reports: None Hx Tobacco Use: No Smoking Status (MU): Never Smoked Tobacco Review of Systems Constitutional: Negative Positive: Other - throat and lip swelling, throat tightening- resolved Cardiovascular: Negative Positive: Shortness Of Breath - difficulty breathing, resolved Positive: Other - itchy-resolved Neurological: Negative All Other Systems Reviewed And Are Negative: Yes Physical Exam Triage Information Reviewed: Yes Vital Signs On Initial Exam: Initial Vitals Temp Pulse Resp BP Pulse Ox 98.9 F 75 16 123/77 95 12/05/17 09:28 12/05/17 09:28 12/05/17 09:28 12/05/17 09:28 12/05/17 09:28 O2 improved to 98% throughout visit Vital Signs Reviewed: Yes Appearance: Positive: Well-Appearing, No Pain Distress, Well-Nourished Skin: Positive: Warm, Skin Color Reflects Adequate Perfusion, Dry. Negative: Cold, Numb, Cyanosis @, Pale, Erythema @ Head/Face: Positive: Normal Head/Face Inspection Eyes: Positive: Conjunctiva Clear ENT: Positive: Normal ENT inspection, Hearing grossly normal, Pharynx normal, TMs normal, Uvula midline - ariway patent, Other - normal lip and tongue size without noted edema at time of exam. Negative: Tonsillar swelling, Tonsillar exudate Neck: Positive: Supple, Nontender Respiratory/Lung Sounds: Positive: Clear to Auscultation, Breath Sounds Present , Other - <2 sec cap refill, no cyanosis. Negative: Decreased Breath Sounds, Rales, Rhonchi, Stridor, Wheezes, Unable to speak in full sentences Cardiovascular: Positive: Normal, RRR, Pulses are Symmetrical in both Upper and Lower Extremities. Negative: Murmur, Rub Abdomen Description: Positive: Nontender, No Organomegaly Bowel Sounds: Positive: Present Musculoskeletal: Positive: Normal, Strength/ROM Intact Neurological: Positive: Normal, Sensory/Motor Intact, Alert, Oriented to Person Place, Time Diagnostics - Vital Signs Vital Signs Temp Pulse Resp BP Pulse Ox 03/13/18 09:28 98.9 F 75 16 123/77 95 - Laboratory Lab Statement: Any lab studies that have been ordered have been reviewed, and results considered in the medical decision making process. Re-Evaluation - Re-Evaluation First Eval Re-Evaluation Time: 11:08 Change: Worse - still feeling ok, no allergic reaction symptoms however does now have a headache. will give analgesia Allergic Reaction Course/Dx - Course Course Of Treatment: given pepcid while in ED. patient had normal physical exam and vital signs at time of examination. was observed and rechecked multiple times over the course of 3 hours. patient was laying in stretcher and comfortable without symptoms while in the ED. did begin to have a headache, given ibuprofen. Spoke with patient's teaching artist, Dr Erickson who stated the Grasstech medication is typically only 24 hours lasting and will be out of system therefore only have to treat acute reaction and first 24 hours and will not need to take any more prevenative allergy meds. Stated to discontinue the grasstech medication and follow up in office this week. Patient agreed and understood plan. No other concerns at this time. Was asymptomatic throughout ED stay. Normal vitals. held off on benadryl until patient was home as it makes her drowsy. will take her prescribed xyzal tonight as directed. - Diagnoses Differential Diagnosis/HQI/PQRI: Positive: Anaphylaxis, Angioedema Provider Diagnoses: Allergic drug reaction, Anaphylactic reaction - Provider Notifications Discussed Care Of Patient With: Dr Erickson - teaching artist Time Discussed With Above Provider: 11:15 Instructed by Provider To: Have Pt Call For Appt. Discharge - Discharge Plan Condition: Good Disposition: HOME Patient Education Materials: Anaphylaxis (ED), General Allergic Reaction (ED) Referrals: Keith Vazquez MD [Primary Care Provider] - Additional Instructions: Recommend taking benadryl and xyzal when you get home. Continue benadryl as needed for any symptoms. IF anaphylactic symptoms (difficult breathing, throat tightening, lip swelling) return when at home please use epi pen and return to ER immediately. Call to make an appointment and follow up with teaching artist office this week. Discontinue taking the grass tech. Increase fluid intake. Any new or worsening symptoms please seek medical attention promptly.
[2017-12-05] MEDS ORDERED: Ibuprofen TAB* 600 MG PO ONE (11:08)
[2017-12-05] MEDS ORDERED: Famotidine TAB* 20 MG PO ONE (11:44)
[2017-12-05 12:22] VITALS: BP 121/78
== END 2017-12-05 12:21 | disposition home or self-care (01) ==
LOC: ED 09:24
DX: T88.6XXA Anaphylactic reaction due to adverse effect of correct drug or medicament properly administered, initial encounter (principal); R06.02 Shortness of breath; T50.905A Adverse effect of unspecified drugs, medicaments and biological substances, initial encounter; R21 Rash and other nonspecific skin eruption; Y92.9 Unspecified place or not applicable; Z88.0 Allergy status to penicillin
CPT/HCPCS: 99282; A9270-GY

== ENCOUNTER 2017-12-08 09:13 | Emergency (ER) | payer OTHER ==
[2017-12-08] MEDS ORDERED: Metoclopramide IV* 5 MG/ML 2 ML VIAL IV ONE (09:45)
[2017-12-08] MEDS ORDERED: diPHENhydraMINE IV* 50 MG/ML 1 ml VIAL (BENADRYL) IV ONE (09:45)
[2017-12-08] MEDS ORDERED: NS 0.9% 1000 ML* 1,000 ML IV ONE (09:45)
[2017-12-08] MEDS ORDERED: Ketorolac INJ* 30 MG/ML 1 ML VIAL IV ONE (09:45)
[2017-12-08 10:47] LABS: ABS Basophils 0 10^3/ul (0-0.2); ABS Eosinophils 0.1 10^3/ul (0-0.6); ABS Lymphocytes 1.2 10^3/ul (1.0-4.8); ABS Monocytes 0.7 10^3/ul (0-0.8); ABS Neutrophils 9.1 10^3/ul (1.5-7.7); ABS Nucleated RBC 0 10^3/ul; Eosinophil % 0.7 % (0-6); Hematocrit 40 % (35-47); Hemoglobin 13.2 g/dl (12.0-16.0); Lymphocyte % 11.2 % (25-47); Mean Corpuscular HGB Conc 33 g/dl (31-36); Mean Corpuscular Hemoglobin 28 pg (27-31); Mean Corpuscular Volume 85 fL (80-97); Mean Platelet Volume 10 um3 (7.4-10.4); Nucleated Red Blood Cells % 0.1; Platelet Count 184 10^3/ul (150-450); Red Cell Distribution Width 14 % (10.5-15); White Blood Count 11.1 10^3/ul (3.5-10.8)
[2017-12-08 11:00] LABS: EGFR Non-African American 114.2 (>60)
[2017-12-08 12:46] VITALS: BP 110/67
[2017-12-08 13:11] LABS: Urine Appearance Clear; Urine Blood 1+ (Negative); Urine Color Yellow; Urine Ketones Negative (Negative); Urine Protein Negative (Negative); Urine Specific Gravity 1.014 (1.010-1.030); Urine Urobilinogen Negative (Negative)
--- NOTE | 2017-12-08 17:36 | ED ---
Adrian Blum Nilda, scribed for Dilip Almonte MD on 12/08/17 at 0944 . Allergic Reaction/Systemic - HPI Summary HPI Summary: This patient is a 27 year old F presenting to [facility] with a chief complaint of constant migraine since being treated 4 days ago for allergic reaction. The patient rates the pain 8/10 in severity. 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 Patient reports fever, throat pain and swelling, and facial swelling. - History of Current Complaint Chief Complaint: EDHeadache Time Seen by Provider: 12/08/17 09:31 Hx Obtained From: Patient Hx Last Menstrual Period: 08/14/17 Onset/Duration: Sudden Onset, Started days ago, Still Present Timing: Constant Severity Currently: Severe Pain Intensity: 8 Pain Scale Used: 0-10 Numeric Location: Discrete @ - throat and face Character: Swelling, Pain Aggravating Factor(s): Nothing Alleviating Factor(s): Nothing Associated Signs And Symptoms: Positive: Other: - migraine, fever, sore throat and swelling, facial swelling. - Allergies/Home Medications Allergies/Adverse Reactions: Allergies Allergy/AdvReac Type Severity Reaction Status Date / Time amoxicillin Allergy Rash Verified 12/08/17 09:20 erythromycin base Allergy Rash Verified 12/08/17 09:20 Penicillins Allergy Rash Verified 12/08/17 09:20 PMH/Surg Hx/FS Hx/Imm Hx Endocrine/Hematology History: Denies: Hx Diabetes Cardiovascular History: Denies: Hx Hypertension Respiratory History: Reports: Hx Asthma, Hx Seasonal Allergies History: Reports: Hx Kidney Infection - 4 infections Denies: Hx Kidney Stones Psychiatric History: Reports: Hx Anxiety, Hx Depression Denies: Hx Eating Disorder, Hx of Violent Episodes Against Others - Surgical History Surgery Procedure, Year, and Place: , tubal ligation, 2 prior pregnancies Infectious Disease History: No Infectious Disease History: Denies: Hx of Known/Suspected MRSA, History Other Infectious Disease, Traveled Outside the [place] in Last 30 Days - Family History Known Family History: Positive: Other - migraines Family History: stroke - Social History Alcohol Use: Occasionally Hx Substance Use: No Substance Use Type: Reports: None Hx Tobacco Use: No Smoking Status (MU): Never Smoked Tobacco Review of Systems Positive: Fever Positive: Sore Throat, Other - throat swelling Positive: Other - facial swelling Positive: Headache All Other Systems Reviewed And Are Negative: Yes Physical Exam - Summary Physical Exam Summary: VITAL SIGNS: Reviewed. GENERAL: Patient is a well-developed and nourished female who is lying comfortable in the stretcher. Patient is not in any acute respiratory distress. HEAD AND FACE: No signs of trauma. No ecchymosis, hematomas or skull depressions. No sinus tenderness. EYES: PERRLA, EOMI x 2, No injected conjunctiva, no nystagmus. EARS: Hearing grossly intact. Ear canals and tympanic membranes are within normal limits. NOSE: Rhinorrhea MOUTH: Oropharynx within normal limits except for pharyngeal erythema. NECK: Supple, trachea is midline, no adenopathy, no JVD, no carotid bruit, no c- spine tenderness, neck with full ROM. CHEST: Symmetric, no tenderness at palpation LUNGS: Clear to auscultation bilaterally. No wheezing or crackles. CVS: Regular rate and rhythm, S1 and S2 present, no murmurs or gallops appreciated. ABDOMEN: Soft, non-tender. No signs of distention. No rebound no guarding, and no masses palpated. Bowel sounds are normal. EXTREMITIES: FROM in all major joints, no edema, no cyanosis or clubbing. NEURO: Alert and oriented x 3. No acute neurological deficits. Speech is normal and follows commands. SKIN: Dry and warm Triage Information Reviewed: Yes Vital Signs On Initial Exam: Initial Vitals Temp Pulse Resp BP Pulse Ox 99.6 F 114 20 137/92 93 12/08/17 09:20 12/08/17 09:20 12/08/17 09:20 12/08/17 09:20 12/08/17 09:20 Vital Signs Reviewed: Yes Diagnostics - Vital Signs Vital Signs Temp Pulse Resp BP Pulse Ox 12/08/17 09:20 99.6 F 114 20 137/92 93 - Laboratory Lab Results: Lab Results 12/08/17 12/08/17 12/08/17 Range/Units 09:46 09:49 10:30 WBC (3.5-10.8) 10^3/ul RBC (4.0-5.4) 10^6/ul Hgb (12.0-16.0) g/dl Hct (35-47) % MCV (80-97) fL MCH (27-31) pg MCHC (31-36) g/dl RDW (10.5-15) % Plt Count (150-450) 10^3/ul MPV (7.4-10.4) um3 Neut % (Auto) (38-83) % Lymph % (Auto) (25-47) % [place] % (Auto) (0-7) % Eos % (Auto) (0-6) % Baso % (Auto) (0-2) % Absolute Neuts (auto) (1.5-7.7) 10^3/ul Absolute Lymphs (auto) (1.0-4.8) 10^3/ul Absolute Monos (auto) (0-0.8) 10^3/ul Absolute Eos (auto) (0-0.6) 10^3/ul Absolute Basos (auto) (0-0.2) 10^3/ul Absolute Nucleated RBC 10^3/ul Nucleated RBC % ESR (0-14) mm/Hr Carbon Monoxide Screen < 4 (<4.0) % Sodium (133-145) mmol/L Potassium (3.5-5.0) mmol/L Chloride (101-111) mmol/L Carbon Dioxide (22-32) mmol/L Anion Gap (2-11) mmol/L BUN (6-24) mg/dL Creatinine (0.51-0.95) mg/dL Est GFR ( Amer) (>60) Est GFR (Non-Af Amer) (>60) BUN/Creatinine Ratio (8-20) Glucose (70-100) mg/dL Calcium (8.6-10.3) mg/dL Total Bilirubin (0.2-1.0) mg/dL AST (13-39) U/L ALT (7-52) U/L Alkaline Phosphatase (34-104) U/L Total Protein (6.4-8.9) g/dL Albumin (3.2-5.2) g/dL Globulin (2-4) g/dL Albumin/Globulin Ratio (1-3) Urine Color Urine Appearance Urine pH (5-9) Ur Specific [place] (1.010-1.030) Urine Protein (Negative) Urine Ketones (Negative) Urine Blood (Negative) Urine Nitrate (Negative) Urine Bilirubin (Negative) Urine Urobilinogen (Negative) Ur Leukocyte Esterase (Negative) Urine WBC (Auto) (Absent) Urine RBC (Auto) (Absent) Ur Squamous Epith Cells (Absent) Urine Bacteria (Absent) Urine Glucose (Negative) Influenza A (Rapid) Negative (Negative) Influenza B (Rapid) Negative (Negative) Group A Strep Rapid Negative (Negative) 12/08/17 12/08/17 12/08/17 Range/Units 10:30 10:30 12:45 WBC 11.1 H (3.5-10.8) 10^3/ul RBC 4.70 (4.0-5.4) 10^6/ul Hgb 13.2 (12.0-16.0) g/dl Hct 40 (35-47) % MCV 85 (80-97) fL MCH 28 (27-31) pg MCHC 33 (31-36) g/dl RDW 14 (10.5-15) % Plt Count 184 (150-450) 10^3/ul MPV 10 (7.4-10.4) um3 Neut % (Auto) 81.7 (38-83) % Lymph % (Auto) 11.2 L (25-47) % [place] % (Auto) 6.0 (0-7) % Eos % (Auto) 0.7 (0-6) % Baso % (Auto) 0.4 (0-2) % Absolute Neuts (auto) 9.1 H (1.5-7.7) 10^3/ul Absolute Lymphs (auto) 1.2 (1.0-4.8) 10^3/ul Absolute Monos (auto) 0.7 (0-0.8) 10^3/ul Absolute Eos (auto) 0.1 (0-0.6) 10^3/ul Absolute Basos (auto) 0 (0-0.2) 10^3/ul Absolute Nucleated RBC 0 10^3/ul Nucleated RBC % 0.1 ESR 26 H (0-14) mm/Hr Carbon Monoxide Screen (<4.0) % Sodium 135 (133-145) mmol/L Potassium 3.7 (3.5-5.0) mmol/L Chloride 101 (101-111) mmol/L Carbon Dioxide 25 (22-32) mmol/L Anion Gap 9 (2-11) mmol/L BUN 8 (6-24) mg/dL Creatinine 0.63 (0.51-0.95) mg/dL Est GFR ( Amer) 146.9 (>60) Est GFR (Non-Af Amer) 114.2 (>60) BUN/Creatinine Ratio 12.7 (8-20) Glucose 94 (70-100) mg/dL Calcium 9.2 (8.6-10.3) mg/dL Total Bilirubin 0.60 (0.2-1.0) mg/dL AST 22 (13-39) U/L ALT 41 (7-52) U/L Alkaline Phosphatase 35 (34-104) U/L Total Protein 7.2 (6.4-8.9) g/dL Albumin 4.1 (3.2-5.2) g/dL Globulin 3.1 (2-4) g/dL Albumin/Globulin Ratio 1.3 (1-3) Urine Color Yellow Urine Appearance Clear Urine pH 6.0 (5-9) Ur Specific [place] 1.014 (1.010-1.030) Urine Protein Negative (Negative) Urine Ketones Negative (Negative) Urine Blood 1+ A (Negative) Urine Nitrate Negative (Negative) Urine Bilirubin Negative (Negative) Urine Urobilinogen Negative (Negative) Ur Leukocyte Esterase Trace A (Negative) Urine WBC (Auto) Trace(0-5/hpf) (Absent) Urine RBC (Auto) Trace(0-2/hpf) (Absent) Ur Squamous Epith Cells Present A (Absent) Urine Bacteria Absent (Absent) Urine Glucose Negative (Negative) Influenza A (Rapid) (Negative) Influenza B (Rapid) (Negative) Group A Strep Rapid (Negative) Result Diagrams: 12/08/17 10:30 12/08/17 10:30 Lab Statement: Any lab studies that have been ordered have been reviewed, and results considered in the medical decision making process. Re-Evaluation - Re-Evaluation First Eval Re-Evaluation Time: 12:27 Change: Improved Comment: POLK is gone. Patient feels better and has no nausea. She is agreeable to D/C. Allergic Reaction Course/Dx - Course Assessment/Plan: This patient is a 27 year old F presenting to [facility] with a chief complaint of constant migraine since being treated 4 days ago for allergic reaction. The patient rates the pain 8/10 in severity. 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 Patient reports fever, throat pain and swelling, and facial swelling. In the ED course an IV access was obtained. Patient was placed in a cord maker. Patient was started with IV fluids. She was given Toradol, Reglan and benadryl for the headache and her symptoms resolved. Labs without any significant abnormality. Influenza and rapid strep negative. However I still think patient think she has a viral URI. At this point I discussed all the findings and test results with the patient and patients parents. They were instructed to return to the emergency room immediately if any of the symptoms return or worsens. They understand and agree. Neurological exam before discharge: Patient is alert and oriented x 3. No acute neurological deficits. Patient vital signs are stable. Patient is to follow up with the manager immunology in the next 2 3 days. They understand and agree. Plan of care was discussed with the patient and patient understands and agrees with the plan of care. All questions were answered at patient satisfaction. There were no further complaints or concerns. - Diagnoses Provider Diagnoses: URI (upper respiratory infection), Migraine Discharge - Discharge Plan Condition: Stable Disposition: HOME Patient Education Materials: Migraine Headache (ED), Upper Respiratory Infection (ED) Referrals: Keith Vazquez MD [Primary Care Provider] - 3 Days Additional Instructions: RETURN TO THE EMERGENCY DEPARTMENT FOR CHANGING OR WORSENING SYMPTOMS. The documentation as recorded by the Adrian lenz Nilda accurately reflects the service I personally performed and the decisions made by me, Dilip Almonte MD.
== END 2017-12-08 12:46 | disposition home or self-care (01) ==
LOC: ED 09:13
DX: J06.9 Acute upper respiratory infection, unspecified (principal); G43.909 Migraine, unspecified, not intractable, without status migrainosus; R50.9 Fever, unspecified; J45.909 Unspecified asthma, uncomplicated; F41.9 Anxiety disorder, unspecified; F32.9 Major depressive disorder, single episode, unspecified; Z88.1 Allergy status to other antibiotic agents; Z88.0 Allergy status to penicillin
CPT/HCPCS: 36415; 80053; 81003; 81015; 82375; 85025; 85652; 87086; 87502; 87651; 96374; 96375; 99282; J1200; J1885; J2765

== ENCOUNTER 2018-02-12 07:57 | Day surgery (SDC) | payer OTHER ==
[~2018-02-12 07:57] MED LIST: Buffered Lidocaine 0.9% SYRIN* 5 ML/SYR SYRINGE INTRADERM ONE; Dexamethasone TAB* 4 MG PO ONE; DiMENhydriNATE IV* 50 MG/ML VIAL IV PUSH PRN; Famotidine IV* 10 MG/ML 2 ML (20 mg) IV ONE; Naloxone* 0.4 MG/ML 1 ML VIAL IV PRN; Ondansetron INJ* 2 MG/ML VIAL ONE; PROCHLORPERAZINE INJ 5 MG/ML 2 ML VIAL IV PRN; Scopolamine 1.5 mg* PATCH TRANSDERM PRN; oxyCODONE/Acetamin 5/325 MG* TAB PO PRN
[2018-02-12] MEDS ORDERED: KETAMINE HCL* 50 MG/ML 10 ML VIAL ONE (08:00)
[2018-02-12] MEDS ORDERED: Midazolam* 1 MG/ML 10 ML VIAL (10 MG) ONE (08:00)
[2018-02-12] MEDS ORDERED: fentaNYL* 50 MCG/ML 2 ML VIAL (100 MCG VIAL) ONE (08:00)
[2018-02-12] MEDS ORDERED: Benzocaine/Butamben/Tetracain* SPRAY ONE (08:03)
[2018-02-12] MEDS ORDERED: Ondansetron ODT TAB* 4 MG ONE (08:25)
[2018-02-12] MEDS ORDERED: Famotidine IV* 10 MG/ML 2 ML (20 mg) ONE (08:25)
[2018-02-12] MEDS ORDERED: Dexamethasone TAB* 4 MG ONE (08:26)
[2018-02-12] MEDS ORDERED: Buffered Lidocaine 0.9% SYRIN* 5 ML/SYR SYRINGE ONE (08:26)
[2018-02-12] MEDS ORDERED: Propofol* 500 MG/50 ML BTL ONE (10:21)
[2018-02-12] MEDS ORDERED: Lidocaine 2% PF * 5 ML VIAL ONE (10:21)
--- NOTE | 2018-02-12 10:28 | BRIEFOPN ---
Brief Operative Note - Surgery Procedures: OPERATIVE REPORT PRE-OP: Bariatric pre-operative evaluation POST-OP: Same, mild areas of erythema in gastric antrum. Normal esophagus, no hiatal hernia, no esophagitis. Normal duodenum PROCEDURE: EGD with gastric biopsies and JHON bx SURGEON: MD Breanna ANESTHESIA:MAC with [place] ASST: none IVF:min EBL:min SPECIMEN:Gastric antral biopsies DRAIN: none WOUND CLASS:N/A COMPLICATIONS: none TO PACU
[2018-02-12 11:04] VITALS: BP 122/87
--- NOTE | 2018-02-13 07:35 | OP ---
CC: Dr. Chucky Quinn * DATE OF OPERATION: 02/12/18 DATE OF : 89 SURGEON: Dr. Carlos. UNIT SECY: None. ANESTHESIA: Monitored anesthesia care with Dr. Fermin. PREOPERATIVE DIAGNOSIS: Bariatric surgery evaluation. POSTOPERATIVE DIAGNOSES: 1. Bariatric surgery evaluation. 2. Normal esophagus without evidence of esophagitis, hiatal hernia, or narrowing. 3. Mild areas of patchy gastric erythema but otherwise normal stomach. 4. Normal duodenum. OPERATIVE PROCEDURES: Esophagogastroduodenoscopy with distal gastral antral biopsy as well as JHON biopsy. ESTIMATED BLOOD LOSS: Trace. SPECIMEN: Gastric antrum and JHON biopsy. COMPLICATIONS: None. WOUND CLASSIFICATION: Not applicable. DRAINS: None. FINDINGS: As above. BRIEF HISTORY: Ms. Tatum Cota is a 27-year-old woman who is undergoing bariatric evaluation for potential gastric bypass and an upper endoscopy has been requested as part of her preoperative evaluation. She has no history or symptoms of gastroesophageal reflux disease, dysphagia, nausea, vomiting, or hematemesis. She takes no proton pump inhibitors, H2 blockers, or require over- the-counter antacids. DESCRIPTION OF PROCEDURE: Written informed consent was obtained. The patient was taken to the operating room, placed in the left lateral decubitus position. Appropriate monitoring devices were placed and a time-out verification was completed. Cetacaine spray was used to anesthetize the posterior pharynx. Time-out verification was completed. Intravenous sedation was administered by anesthesia. The adult Olympus videoendoscope was then inserted into the posterior pharynx, and under direct vision, the esophagus was intubated. The proximal, mid, and distal esophagus appeared to be normal. The gastroesophageal junction was normal with normal appearing squamocolumnar junction without evidence of erythema, Gaytan esophagus, esophagitis, or webs or rings. There was no evidence of narrowing or stricture. The stomach was entered and was insufflated. On retroflexion, there was no evidence of a hiatal hernia. The cardia and body of the stomach were normal. There were some mild areas of streaky erythema in the gastric antrum and biopsies were taken as well as a JHON biopsy. The pylorus was widely patent and this was entered. The duodenal bulb, and first and second portions of the duodenum appeared to be unremarkable. The endoscope was then withdrawn, brought up back into the stomach. Air was suctioned from the stomach. The endoscope was then withdrawn. The patient tolerated the procedure well and was taken to the recovery room in stable condition. [id number]/[facility] #: [id number] SEDRICK
[2018-02-15] MEDS ORDERED: Scopolamine PATCH Remove* 1 NOTE MISC PATCH OFF ONE (05:43)
== END 2018-02-12 11:26 | disposition home or self-care (01) ==
LOC: OR 07:57
PROVIDERS: ATTEND Surgery
DX: E66.01 Morbid (severe) obesity due to excess calories (principal); Z68.30 Body mass index [BMI] 30.0-30.9, adult; Z72.0 Tobacco use; E11.9 Type 2 diabetes mellitus without complications; Z79.84 Long term (current) use of oral hypoglycemic drugs; F41.8 Other specified anxiety disorders; Z01.818 Encounter for other preprocedural examination
CPT/HCPCS: 87077; 88305; A9270-GY; J2250; J2704; J3010; J8540

== ENCOUNTER 2018-04-18 11:36 | Inpatient (IN) | payer OTHER ==
[~2018-04-18 11:36] MED LIST changes: -Dexamethasone TAB* 4 MG PO ONE; -DiMENhydriNATE IV* 50 MG/ML VIAL IV PUSH PRN; -Famotidine IV* 10 MG/ML 2 ML (20 mg) IV ONE; -Naloxone* 0.4 MG/ML 1 ML VIAL IV PRN; -Ondansetron INJ* 2 MG/ML VIAL ONE; -PROCHLORPERAZINE INJ 5 MG/ML 2 ML VIAL IV PRN; -Scopolamine 1.5 mg* PATCH TRANSDERM PRN; -oxyCODONE/Acetamin 5/325 MG* TAB PO PRN
--- OUTSIDE RECORDS SUMMARY | 2018-04-18 11:42 | XMS REPORT ---
:1990 External Reference #:[id number] Author Organization [facility] Address [address] [place] [address] Phone [phone] Care Team Providers Name Role Phone Terri Johnston NP Care Team Information Construction Manager Unavailable James Logan MD Primary Care Physician Unavailable Payers Type Date Identification Numbers Payment Provider Subscriber Commercial Policy Number: [id number] Ayden Cota [employer] Name: [id number] [address] PayID: [id number] [place] [address] Workers Compensation Effective: Policy Number: Mecca Cota 2017 [id number] Onset: 2017 PayID: [id number] [address] [place] [address] Problems Date Description Provider Status Onset: 08/09/2017 [...] Comments 07/20/2017 Amoxicillin active 07/20/2017 Penicillin active rash 08/09/2017 Zithromax active Mild to Moderate 10/23/2017 Bactrim active Moderate to Severe 10/23/2017 Erythromycin active Moderate to Severe 01/30/2018 Cefaclor Nausea and Vomiting active Medications Medication Date Status Form Strength Qnty SIG Indications Ordering Provider Gabapentin Active Capsules 100mg 180ca take two Sadie /0000 ps capsules by Virk, mouth three [employer] times a day Buspirone HCL Active Tablets 30mg 60tab take 1 Sadie /0000 s tablet by Virk, mouth twice [employer] daily Levocetirizine Active Tablets 5mg 90tab take 1 Sadie Dihydrochloride /0000 s tablet by Virk, mouth once [employer] daily at bedtime Venlafaxine HCL Active Caps ER 37.5mg 60cap take one Sadie ER /0000 24HR s capsule by Virk, mouth twice [employer] a day with food Metformin HCL Active Tablets 500mg 60tab 1 tab twice Sadie /0000 s a day BETITO Virk Alprazolam Active Tablets 0.25mg one by mouth Unknown /0000 up to three times daily as needed for anxiety Xyzal Allergy Active Tablets 5mg 1 by mouth Unknown 24HR /0000 every day Proair HFA Active Aerosol 108(90Bas 2 puffs by Unknown /0000 e) mouth every mcg/Act 4 hours as needed Fluconazole 12/27 Hx Tablets 150mg 2tabs one by mouth January repeat Virk, in 3 days as [employer] needed Ciprofloxacin HCL 12/25 Hx Tablets 250mg 14tab 1 by mouth N39.0 s twice a day BETITO Virk Mupirocin 12/25 Hx Ointment 2% 22gm apply to leg L02.416 wound twice Virk, a day [employer] Ondansetron HCL 11/08 Hx Tablets 4mg 20tab 1 every 6 s hours as yaya Bailey M.D.,FACP Vitamin B-12 11/06 Hx Tablets 250mcg 1 by mouth D84.9 James every day Vishnu Logan M.D.,FACP Tamiflu 10/19 Hx Capsules 75mg 7caps one daily for 7 days Virk, - [employer] 10/26 Naproxen 08/31 Hx Tablets 375mg 60tab 1 by mouth [address] wood twice a day Alejo Vazquez. Guaifenesin ac 08/24 Hx Syrup 100-10mg/ 180ml 5-10 R05 5ML milliliters Virk, - by mouth [employer] 09/03 every hours as needed cough, use at night Guaifenesin ac 08/24 Hx Syrup 100-10mg/ 180ml 5-10 R05 5ML milliliters Virk, - by mouth [employer] 11/06 every hours as needed cough, use at night Medications Administered in Office Medication Date Status Form Strength Qnty SIG Indications Ordering Provider Hepatitis Administered Injection Unknown B,Unspecified 997 Hepatitis Administered Injection Unknown B,Unspecified 996 Polio,Unspecif Administered Injection Unknown ied 993 Hib,Unspecifie Administered [...] CPT Code Status Date Vaccine Lot # [id number] Given 01/31/1996 Tdap - Tetanus/Diptheria/Acellular Pertussis 38433 Given 01/31/1996 Measles Mumps And Rubella MMR 01823 Given 11/17/1992 Tdap - Tetanus/Diptheria/Acellular Pertussis 11629 Given 07/14/1992 Measles Mumps And Rubella MMR 51938 Given 1991 Tdap - Tetanus/Diptheria/Acellular Pertussis 65175 Given 1991 Tdap - Tetanus/Diptheria/Acellular Pertussis 90710 Given 1991 Tdap - Tetanus/Diptheria/Acellular Pertussis Vital Signs Date Vital Result Comment 01/30/2018 Height 64 inches 5'4" Weight 242.00 lb Heart Rate 78 /min BP Systolic 130 mmHg BP Diastolic 80 mmHg Respiratory Rate 16 /min Body Temperature 99.1 F BMI (Body Mass Index) 41.5 kg/m2 12/25/2017 Weight 236.00 lb Heart Rate 75 /min BP Systolic 115 mmHg BP Diastolic 80 mmHg Body Temperature 98.5 F O2 % BldC Oximetry 98 % 11/06/2017 Weight 240.00 lb Heart Rate 100 [...] kg/m2 Neck Circumference in inches 16.5 Results Test Date Test Result H/L Range Note Laboratory test finding 02/12/2018 Surgical Pathology SEE RESULT BELOW 1 Laboratory test finding 02/12/2018 Clotest SEE RESULT BELOW 2 Urine Culture And 12/25/2017 Urine Culture SEE RESULT BELOW 3, 4 Sensitivities Ua Routine 12/25/2017 Ua Specific [place]ox[place] 1.020 Ua PH 5 Ua Color dark yellow Ua Appera clear Ua WBC positive Ua Protein trace Ua Glucose normal Ua Ketones negative Ua Bilirubin negative Ua Urobilinogen normal Ua Nitrite negative Ua Occult Blood about 50 Urinalysis Profile 12/08/2017 Urine Color Yellow Urine Appearance Clear Urine Specific M[place] 1.014 1.010-1.030 Urine pH 6.0 5-9 Urine Urobilinogen Negative Negative Urine Ketones Negative Negative Urine Protein Negative Negative Urine Leukocytes Trace Negative Urine Blood 1+ Negative Urine Nitrite Negative Negative Urine Bilirubin Negative Negative Urine Glucose Negative Negative Urine White Blood Cell Trace(0-5/hpf) Absent Urine Red Blood Cell Trace(0-2/hpf) Absent Urine Bacteria Absent Absent Urine Squamous Epithelial Cell Present Absent Urine Culture And 12/08/2017 Urine Culture SEE RESULT BELOW 5 Sensitivities Laboratory test finding 12/08/2017 Rapid Strep A SEE RESULT BELOW 6 Laboratory test finding 12/08/2017 Rapid Influenza A B SEE RESULT BELOW 7 Antigen Laboratory test finding 12/08/2017 Carbon Monoxide < 4 % <4.0 Comp Metabolic Panel 12/08/2017 Sodium 135 mmol/L 133-145 Potassium 3.7 mmol/L 3.5-5.0 Chloride 101 mmol/L 101-111 Co2 Carbon Dioxide 25 mmol/L 22-32 Anion Gap 9 mmol/L 2-11 Glucose 94 mg/dL 70-100 Blood Urea Nitrogen 8 mg/dL 6-24 Creatinine 0.63 mg/dL 0.51-0.95 BUN/Creatinine Ratio 12.7 8-20 Calcium 9.2 mg/dL 8.6-10.3 Total Protein 7.2 g/dL 6.4-8.9 Albumin 4.1 g/dL 3.2-5.2 Globulin 3.1 g/dL 2-4 Albumin/Globulin Ratio 1.3 1-3 Total Bilirubin 0.60 mg/dL 0.2-1.0 Alkaline Phosphatase 35 U/L 34-104 Alt 41 U/L 7-52 Ast 22 U/L 13-39 Egfr Non- 114.2 >60 Egfr 146.9 >60 8 CBC Auto Diff 12/08/2017 White Blood Count 11.1 10^3/uL High 3.5-10.8 Red Blood Count 4.70 10^6/uL 4.0-5.4 Hemoglobin 13.2 g/dL 12.0-16.0 Hematocrit 40 % 35-47 Mean Corpuscular Volume 85 fL 80-97 Mean Corpuscular Hemoglobin 28 pg 27-31 Mean Corpuscular HGB Conc 33 g/dL 31-36 Red Cell Distribution Width 14 % 10.5-15 Platelet Count 184 10^3/uL 150-450 Mean Platelet Volume 10 um3 7.4-10.4 Abs Neutrophils 9.1 10^3/uL High 1.5-7.7 Abs Lymphocytes 1.2 10^3/uL 1.0-4.8 Abs Monocytes 0.7 10^3/uL 0-0.8 Abs Eosinophils 0.1 10^3/uL 0-0.6 Abs Basophils 0 10^3/uL 0-0.2 Abs Nucleated RBC 0 10^3/uL Granulocyte % 81.7 % 38-83 Lymphocyte % 11.2 % Low 25-47 Monocyte % 6.0 % 0-7 Eosinophil % 0.7 % 0-6 Basophil % 0.4 % 0-2 Nucleated Red Blood Cells % 0.1 Laboratory test finding 12/08/2017 Erythrocyte Sed Rate 26 mm/Hr High 0- 14 Rapid Influenza A & B 12/08/2017 Influenza A Molecular NEGATIVE Negative 9 Molecular Influenza B Molecular NEGATIVE Negative Laboratory test finding 12/08/2017 Rapid Strep Molecular Negative Negative 10 GC/Chlamydia Amplified 12/01/2017 Chlamydia trachomatis Rna Negative Negative 11 Rna Neisseria gonorrhoeae (GC) Rna Negative Negative 11 Laboratory test 12/01/2017 Cytology SEE RESULT BELOW 11, 12 finding CBC Auto Diff 11/07/2017 White Blood Count 9.7 10^3/uL 3.5-10.8 Red Blood Count 5.04 10^6/uL 4.0-5.4 Hemoglobin 14.5 g/dL 12.0-16.0 Hematocrit 43 % 35-47 Mean Corpuscular Volume 86 fL 80-97 Mean Corpuscular Hemoglobin 29 pg 27-31 Mean Corpuscular HGB Conc 34 g/dL 31-36 Red Cell Distribution Width 14 % 10.5-15 Platelet Count 262 10^3/uL 150-450 Mean Platelet Volume 10 um3 7.4-10.4 Abs Neutrophils 6.8 10^3/uL 1.5-7.7 Abs Lymphocytes 2.1 10^3/uL 1.0-4.8 Abs Monocytes 0.5 10^3/uL 0-0.8 Abs Eosinophils 0.1 10^3/uL 0-0.6 Abs Basophils 0.1 10^3/uL 0-0.2 Abs Nucleated RBC 0 10^3/uL Granulocyte % 70.3 % 38-83 Lymphocyte % 21.7 % Low 25-47 Monocyte % 5.5 % 1-9 Eosinophil % 1.4 % 0-6 Basophil % 1.1 % 0-2 Nucleated Red Blood Cells % 0.1 Urinalysis Profile 11/07/2017 Urine Color Dania Urine Appearance Cloudy Urine Specific Mox[place] 1.027 1.010-1.030 Urine pH 5.0 5-9 Urine Urobilinogen Negative Negative Urine Ketones Negative Negative Urine Protein 2+(100 mg/dL) Negative Urine Leukocytes Trace Negative Urine Blood Negative Negative Urine Nitrite Negative Negative Urine Bilirubin Negative Negative Urine Glucose Negative Negative Urine White Blood Cell Trace(0-5/hpf) Absent Urine Red Blood Cell Trace(0-2/hpf) Absent Urine Bacteria Absent Absent Urine Squamous Epithelial Cell Present Absent Laboratory test finding 11/07/2017 C Reactive Protein 8.75 mg/L High < 5.00 13 Urine Culture And 11/07/2017 Urine Culture SEE RESULT 14 Sensitivities BELOW Immunoglobulins Serum 11/07/2017 Immunoglobulin G 1230 mg/dL 767 - 1590 15 Quant Immunoglobulin M 138 mg/dL 37 - 286 Immunoglobulin A 343 mg/dL 61 - 356 1 SEE RESULT BELOW Name: TATUM COTA : [address]: Cachorro Carlos MD Acct: [id number] Unit: [id number] AGE: 27 Location: OR Re02/12/18 SEX: F Status: STEVEN MAXWELLC SPEC: [id number] QUIRINO: 02/12/18-[address] [facility] [address]: Cachorro Carlos MD REQ: [id number] RECD: 02/12/18-1240 STATUS: SOUT _ ORDERED: LEVEL 4 FINAL DIAGNOSIS Stomach, antrum and body, biopsy: -- Antral-type gastric mucosa with reactive foveolar hyperplasia. -- No evidence of Helicobacter organisms. CLINICAL HISTORY EGD for bariatric evaluation POST-OPERATIVE DIAGNOSIS EGD: normal gastroesophageal junction ? no esophagitis, no hiatal hernia, no narrowing; mild erythema gastric antrum ? biopsy and CLOtest; duodenum ? normal. GROSS DESCRIPTION The specimen is received in formalin labeled, Antrum and Body Biopsy, and consists of a 0.5 x 0.3 x 0.1 cm chong-pink irregular soft tissue fragment which is submitted entirely in one cassette. Signed by and Reported on: Terri Coto MD 02/13/18 1451 END OF REPORT DEPARTMENT OF PATHOLOGY, [address] [place] [address] Mark Garcia M.D. Director [facility] # [id number] 2 SEE RESULT BELOW Name: ATUL,TATUM H : [address]: Cachorro Carlos MD Acct: [id number] Unit: [id number] AGE: 27 Location: OR Re02/12/18 SEX: F Status: DEP SDC SPEC: [id number] QUIRINO: 02/12/18-[address] [facility] [address]: Cachorro Carlos MD REQ: [id number] RECD: 02/12/18-1244 STATUS: COMP OTHR DR: Keith Vazquez MD _ SOURCE: GAS ANTRUM SPDESC: ORDERED: Clotest Procedure Result Reported Site Clotest Final 02/13/18- 657 ML Clotest Negative * - [facility] . END OF REPORT DEPARTMENT OF PATHOLOGY, [address] [place] [address] Mark Garcia M.D. Director [facility] # [id number] SEE RESULT BELOW Name: MACIEL COTAJUAN Borja : [address]: Sadie Virk NP Acct: [id number] Unit: [id number] AGE: 27 Location: [facility] Re12/25/17 SEX: F Status: REG REF SPEC: [id number] QUIRINO: 12/25/17-[address]: Sadie Virk NP REQ: [id number] RECD: 12/25/17 STATUS: COMP _ SOURCE: URINE SPDESC: ORDERED: Urine Culture COMMENTS: [id number] Urine Source: Random Procedure Result Reported Site Urine Culture Final 12/31/17- 1033 ML Organism 1 YEAST Leland Count 10-25,000 (Moderate) CFU/ML Organism 2 NORMAL SHRUTHI Leland Count 1-10,000 (Few) CFU/ML Unable to grow enough Yeast for identification. Organism nonviable for further testing. * ML - Main Lab . END OF REPORT DEPARTMENT OF PATHOLOGY, [address] [place] [address] Mark Garcia M.D. Director [facility] # [id number] 5 SEE RESULT BELOW Name: TATUM COTA : [address]: Dilip Almonte MD Acct: [id number] Unit: [id number] AGE: 27 Location: ED Re12/08/17 SEX: F Status: DEP ER SPEC: [id number] QUIRINO: 12/08/17-[address] [facility] [address]: Dilip Almonte MD REQ: [id number] RECD: 12/08/17 STATUS: VONDA MULLINS DR: Keith Vazquez MD _ SOURCE: URINE SPDESC: ORDERED: Urine Culture Procedure Result Reported Site Urine Culture Final 12/09/17- 1335 ML No Growth (<1,000 CFU/mL) * ML - Main Lab . END OF REPORT DEPARTMENT OF PATHOLOGY, [address] [place] [address] Mark Garcia M.D. Director [facility] # [id number] 6 SEE RESULT BELOW Name: TATUM COTA : [address]: Dilip Almonte MD Acct: [id number] Unit: [id number] AGE: 27 Location: ED Re12/08/17 SEX: F Status: REG ER SPEC: [id number] QUIRINO: 12/08/[address]: Dilip Almonte MD REQ: [id number] RECD: 12/08/17 STATUS: VONDA MULLINS DR: Keith Vazquez MD _ SOURCE: THROAT SPDESC: ORDERED: Strep A Request Procedure Result Reported Site Rapid Strep A Request Final 12/08/17- 59 ML Specimen received for Rapid Strep A Molecular testing * ML - Main Lab . END OF REPORT DEPARTMENT OF PATHOLOGY, [address] [place] [address] Mark Garcia M.D. Director [facility] # [id number] 7 SEE RESULT BELOW Name: TATUM COTA : [address]: Dilip Almonte MD Acct: [id number] Unit: [id number] AGE: 27 Location: ED Re12/08/17 SEX: F Status: REG ER SPEC: [id number] QUIRINO: 12/08/17-[address]: Deloris CISSE REQ: [id number] RECD: 12/08/17 STATUS: VONDA MULLINS DR: Keith Almonte MD _ [facility] ORDERED: Flu A B Request Procedure Result Reported Site Rapid Influenza A B Request Final 12/08/17958 ML Specimen received for Influenza A/B Molecular testing * ML - Main Lab . END OF REPORT DEPARTMENT OF PATHOLOGY, [address] [place] [address] Mark Garcia M.D. Director [facility] # [id number] 8 Because ethnic data is not always readily available, this report includes an eGFR for both -Americans and non- Americans. The National Kidney Disease Education Program (NKDEP) does not endorse the use of the MDRD equation for patients that are not between the ages of 18 and 70, are , have extremes of body size, muscle mass, or nutritional status, or are non- or non-. According to the National Kidney Foundation, irrespective of diagnosis, the stage of the disease is based on the level of kidney function: Stage Description GFR(mL/min/1.73 m(2)) 1 Kidney damage with normal or decreased GFR 90 2 Kidney damage with mild decrease in GFR 60-89 3 Moderate decrease in GFR 30-59 4 Severe decrease in GFR 15-29 5 Kidney failure <15 (or dialysis) 9 Provider Engagement Executive: [id number] 10 Provider Engagement Executive: [id number] 12 SEE RESULT BELOW Name: TATUM COTA : [address]: Johnnie Dominique MD Acct: [id number] Unit: [id number] AGE: 27 Location: [facility] Re12/01/17 SEX: F Status: REG REF SPEC: [id number] QUIRINO: 12/01/17-[address] [facility] [address]: Johnnie Dominique MD REQ: [id number] RECD: 12/01/177 STATUS: MICHELLE MULLINS DR: Keith Vazquez MD _ ORDERED: TP IMAGE ANAL, HPV 16/18 GENE COMMENTS: [id number] Negative for Intraepithelial lesion or Malignancy A. 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 Due to cytologic findings at the human resources admin microscope, comprehensive manual rescreening by a Extractive Metallurgist may be required. The Pap Smear is a screening test designed to aid in the detection of premalignant and malignant conditions of the uterine cervix. It is not a diagnostic procedure and should not be used as the sole means of detecting cervical cancer. Both false- positive and false- negative reports do occur. Depending on your risk status, a Pap smear should be obtained and evaluated every 1-3 years. END OF REPORT DEPARTMENT OF PATHOLOGY, [address] [place] [address] Mark Garcia M.D. Director [facility] # [id number] 13 Acute inflammation: >10.00 14 SEE RESULT BELOW Name: TATUM COTA : [address]: Keith Vazquez MD Acct: [id number] Unit: [id number] AGE: 27 Location: LAB Re11/07/17 SEX: F Status: REG REF SPEC: [id number] QUIRINO: 11/07/[address] [facility] [address]: Keith Vazquez MD REQ: [id number] RECD: 11/07/17 STATUS: VONDA MULLINS DR: Hayder Erickson MD _ SOURCE: URINE SPDC: ORDERED: Urine Culture Procedure Result Reported Site Urine Culture Final 11/08/17915 ML No Growth (<1,000 CFU/mL) * ML - MAIN LAB ([facility]) . END OF REPORT * ML=Testing performed at Main Lab DEPARTMENT OF PATHOLOGY, [address] [place] [address] Mark Garcia M.D. Director [facility] # [id number] 15 Test Performed by: [address] [address] Procedures Date CPT Code Description Status 02/12/2018 07532 Endoscopy Upper GI Biopsy Completed Encounters Type Date Location Provider CPT E/M Dx Office Visit 01/30/2018 [facility] NevaLindsay Carlos, [address]78 E66.01 10:00a [facility] Office Visit 12/25/2017 [facility] Internal Medicine Sadie Virk, 19126 N39.0 9:00a - [address] [employer] L02.416 Office Visit 11/06/2017 4:20p [facility] Internal Medicine James Logan, [address]1375 D84.9 - [address] [place],FACP Office Visit 10/23/2017 10:10a [facility] Internal Medicine Sadie Virk, [address]308 B34.9 - [address] [employer] Office Visit 08/31/2017 10:00a [facility] Internal Medicine Keith Vazquez, 76843 M25.531 - [address] Office Visit 08/24/2017 9:50a [facility] Internal Medicine Sadie Virk, [address] R05 - [address] [employer] Office Visit 08/09/2017 11:30a [facility] Internal Medicine Sadie Virk, [address]27 H81.11 - [address] [employer] Office Visit 07/20/2017 8:45a [facility] [place] [address] R06.83 [facility] E66.01 Plan of Care Future Appointment(s):05/04/2018 9:15 am - Nilay Sanabria LCSW at [facility] Internal Medicine - [address]05/08/2018 10:00 am - Leana Jimenez DNP, RN, TRIMMER MEAT-BC at [facility]04/13/2018 8:30 am - Nilay Sanabria LCSW at [facility] Internal Medicine - [address]
[2018-04-18] MEDS ORDERED: Clindamycin 900 MG IVPREMIX(* 900 MG/50 ML SDV IV ONE (11:45)
[2018-04-18] MEDS ORDERED: Heparin VIAL(*) 5000 UNITS/ML VIAL (FIVE THOUSAND) ONE (11:45)
[2018-04-18] MEDS ORDERED: Ciprofloxacin 400MG IVPREMIX(* 400 MG/200 ML BAG ONE (11:45)
[2018-04-18] MEDS ORDERED: fentaNYL* 50 MCG/ML 2 ML VIAL (100 MCG VIAL) ONE ×2 (12:30→13:25)
[2018-04-18] MEDS ORDERED: Midazolam* 1 MG/ML 2 ML VIAL (2 MG) ONE (12:30)
[2018-04-18] MEDS ORDERED: Bupivacaine 0.25% SDV PF* 10 ML VIAL INJ ONE (12:43)
[2018-04-18] MEDS ORDERED: Ondansetron INJ* 2 MG/ML VIAL ONE ×3 (13:04→15:51)
[2018-04-18] MEDS ORDERED: Propofol* 10 MG/ML 20 ML BTL IV PUSH ONE (13:04)
[2018-04-18] MEDS ORDERED: Succinylcholine* 20 MG/ML 10 ML VIAL ONE (13:04)
[2018-04-18] MEDS ORDERED: Dexamethasone IV* 4 MG/ML 1 ML (4 MG) ONE (13:04)
[2018-04-18] MEDS ORDERED: Cisatracurium* 2 MG/ML MDV 5 ML ONE (13:04)
[2018-04-18] MEDS ORDERED: Lidocaine 2% PF * 5 ML VIAL ONE (13:04)
[2018-04-18] MEDS ORDERED: diPHENhydraMINE IV* 50 MG/ML 1 ml VIAL (BENADRYL) SLOW PUSH PRN (14:34)
[2018-04-18] MEDS ORDERED: HYDROmorphone INJ* 2 MG/ML CARPUJECT SYRINGE IV PRN (14:34)
[2018-04-18] MEDS ORDERED: HYDROcodone/ACETAMIN 5-325 MG* 1 TAB PO PRN (14:35)
[2018-04-18] MEDS ORDERED: Acetaminophen TAB* 325 MG PO PRN (14:35)
[2018-04-18] MEDS ORDERED: Naloxone* 0.4 MG/ML 1 ML VIAL IV PRN (14:35)
[2018-04-18] MEDS ORDERED: Albuterol HFA INHALER* 8 gm MDI INH PRN (14:38)
[2018-04-18] MEDS ORDERED: LORazepam INJ* 2 MG/ML 1 ML VIAL IV PUSH PRN (14:40)
--- NOTE | 2018-04-18 14:42 | BRIEFOPN ---
Brief Operative Note - Surgery Procedures: PRE/POSTOP DX: MORBID OBESITY PROC: LAP SLEEVE GASTRECTOMY SURG: MECLYNETTE ASSIST: ANA ANES: ZAKI/SANDRA EBL: MIN IVF: LR SPEC: PORTION OF STOMACH DRAIN/COMPL: NONE COND: STABLE TO RR EXTUBATED.
[2018-04-18] MEDS ORDERED: PROCHLORPERAZINE INJ 5 MG/ML 2 ML VIAL ONE (14:47)
[2018-04-18] MEDS ORDERED: Scopolamine 1.5 mg* PATCH ONE (14:56)
[2018-04-18] MEDS ORDERED: HYDROmorphone INJ* 0.5 MG/0.5 ML SYRINGE ONE ×2 (15:07→15:50)
[2018-04-18] MEDS: HYDROmorphone INJ* 0.5 MG/0.5 ML SYRINGE IV PRN ×3 (15:08→15:49)
[2018-04-18] MEDS ORDERED: hydrALAZINE IV* 20 MG/ML VIAL ONE (15:30)
[2018-04-18] MEDS: Ondansetron INJ* 2 MG/ML VIAL IV PRN ×2 (15:52→21:55)
[2018-04-18] MEDS ORDERED: Labetalol IV* 5 MG/ML 20 ML VIAL ONE (17:25)
[2018-04-18] MEDS ORDERED: Metoclopramide IV* 5 MG/ML 2 ML VIAL ONE (17:25)
[2018-04-18] MEDS: Ketorolac INJ* 30 MG/ML 1 ML VIAL IV PRN (19:28)
[2018-04-18] MEDS: Famotidine IV* 10 MG/ML 2 ML (20 mg) IV SLOW PU SCH (21:55)
[2018-04-19] MEDS: HYDROmorphone INJ* 0.5 MG/0.5 ML SYRINGE IV PRN ×2 (01:15→15:03)
[2018-04-19] MEDS: Ondansetron INJ* 2 MG/ML VIAL IV PRN ×3 (03:52→17:53)
[2018-04-19] MEDS: Ketorolac INJ* 30 MG/ML 1 ML VIAL IV PRN ×3 (03:55→17:53)
--- NOTE | 2018-04-19 07:12 | OP ---
CC: [facility]; Keith Vazquez MD * DATE OF OPERATION: 04/18/18 - ROOM #350 DATE OF : [birth year] SURGEON: Dr. Quinn. METAL FINISHER: Lobo Davis MD PRE-OP DIAGNOSIS: Morbid obesity. POST-OP DIAGNOSIS: Morbid obesity. OPERATIVE PROCEDURE: Laparoscopic sleeve gastrectomy. ESTIMATED BLOOD LOSS: Minimal. IV FLUIDS: Crystalloids. SPECIMEN: Portion of stomach. DRAINS: None. COMPLICATIONS: None. COUNTS: The instrument, needle, and sponge counts were correct. DESCRIPTION OF PROCEDURE: The patient was brought to the operating room and placed on the table supine. Sequential compression devices were placed on both lower extremities. General anesthesia was administered. She was positioned and padded appropriately. She received antibiotics and was prepped and draped in usual sterile fashion and time-out was performed. Local anesthetic was infiltrated into the skin and soft tissue prior to making each incision. Entry into the abdomen was through a left upper quadrant incision accommodating a 5-mm optical trocar. After accessing the peritoneal cavity, carbon dioxide was insufflated to a pressure 15 mmHg. Under direct visualization, 12-mm bladeless trocars were placed in the supraumbilical midline and right upper quadrant. A 5-mm trocar was placed in the left upper quadrant laterally. A Daron liver retractor was placed percutaneously in the subxiphoid position and used to elevate the left lobe of the liver. The gastric anatomy appeared normal. The pylorus was identified. Proximal to the pylorus on the greater curvature by approximately 6 cm, LigaSure was used to skeletonize the stomach. The mobilization proceeded all the way up to the gastroesophageal junction freeing the cardia of the stomach from the left bell of the diaphragm and divided posterior short gastric vessels. After completing mobilization of the stomach, a sleeve gastrectomy was performed over a 40-Danish bougie using the Endo RADHA stapler with purple reinforced cartridges. After completing the division of the stomach, the specimen was retrieved using an endoscopic retrieval bag through the right upper quadrant wound. Hemostasis was assured. The liver retractor and ports removed under direct visualization. Carbon dioxide was released. Skin incisions were closed with 4-0 Monocryl in subcuticular fashion and Steri-Strips were applied with dry dressings. The patient tolerated this procedure well. She was extubated and transferred to the recovery room in stable condition. [id number]/[facility] #: [id number] SEDRICK
[2018-04-19] MEDS: Famotidine IV* 10 MG/ML 2 ML (20 mg) IV SLOW PU SCH ×2 (08:16→21:39)
[2018-04-19] MEDS ORDERED: ALPRAZolam TAB* 0.25 MG PO PRN (09:04)
--- NOTE | 2018-04-19 10:08 | PN ---
Progress Note - Progress Note Date of Service: 04/19/18 SOAP: Subjective:POD#1 S/P LAP SLEEVE GASTRECTOMY dry heaving overnight;pain associated with dry heaving;didn't sleep well [] Objective:afeb;VSS;o2sat 99%RA;lungs:clear bilat;heart:RRR;Abd:obese;hypoactive bs;incisions intact with dressings,clean and dry;Ext:nontender [] Assessment:dry heaving despite Scopalamine patch [] Plan:Zofran now and if ineffective try Compazine;jonathon clears when able;cont IV fluids;ambulate;inspiron;terrance later []
[2018-04-19] MEDS: Gabapentin CAP(*) 300 MG PO SCH ×2 (13:48→21:36)
[2018-04-19] MEDS: PROCHLORPERAZINE INJ 5 MG/ML 2 ML VIAL IV PRN ×2 (14:21→21:37)
[2018-04-19] MEDS: D5W 1/2 NS KCl 20 Meq 1000 ML* 1,000 ML IV SCH (14:58)
[2018-04-19] MEDS ORDERED: Cetirizine* 10 MG TAB PO SCH (18:00)
[2018-04-19] MEDS: Venlafaxine EXT RELEASE CAP* 75 MG PO SCH (21:37)
[2018-04-19] MEDS: busPIRone TAB* 10 MG PO SCH (21:37)
[2018-04-20] MEDS: D5W 1/2 NS KCl 20 Meq 1000 ML* 1,000 ML IV SCH (00:13)
[2018-04-20] MEDS: Ketorolac INJ* 30 MG/ML 1 ML VIAL IV PRN ×2 (01:47→07:44)
[2018-04-20] MEDS: Ondansetron INJ* 2 MG/ML VIAL IV PRN (01:50)
[2018-04-20] MEDS ORDERED: HYDROcodone/ACET. 7.5/325 LIQ* 15 ML UDC ONE (07:38)
[2018-04-20] MEDS: Famotidine IV* 10 MG/ML 2 ML (20 mg) IV SLOW PU SCH (07:44)
[2018-04-20] MEDS ORDERED: HYDROcodone/ACET. 7.5/325 LIQ* 15 ML UDC PO PRN (07:53)
[2018-04-20 08:06] VITALS: BP 138/88
[2018-04-20] MEDS: Gabapentin CAP(*) 300 MG PO SCH (08:32)
[2018-04-20] MEDS: Venlafaxine EXT RELEASE CAP* 75 MG PO SCH (08:32)
[2018-04-20] MEDS: busPIRone TAB* 10 MG PO SCH (08:35)
--- NOTE | 2018-04-21 00:46 | DS ---
DISCHARGE SUMMARY: DATE OF ADMISSION: 04/18/18 DATE OF DISCHARGE: 04/20/18 PATIENT OF: Dr. Chucky Quinn. ADMITTING PHYSICIAN: Dr. Chucky Quinn.* (DICTATED BY BETITO ARREGUIN) ADMISSION DIAGNOSIS: Clinically morbid obesity. DISCHARGE DIAGNOSIS: Clinically morbid obesity. CONSULTATIONS: None. PROCEDURE: Laparoscopic sleeve gastrectomy on 04/18/18. HISTORY OF PRESENT ILLNESS: Ms. Cota is a pleasant 28-year-old female, who was evaluated at the [facility] in consideration for a bariatric surgery. The patient had suffered from excessive body weight for most of her young adult life. She had tried several diet regimen and physical exercise that unfortunately failed to maintain her weight loss. She was evaluated by Dr. Quinn at [facility] and found to be a good candidate for sleeve gastrectomy to be performed on a later day. HOSPITAL COURSE: The patient was admitted through same-day surgery on 04/18/18 and was taken to the operating room later that morning. She underwent a laparoscopic sleeve gastrectomy that was essentially unremarkable. After recovery, she was transferred to the surgical floor for observation. She did relatively well with only mild incisional discomfort that was well tolerated using pain medicine as needed. She continued to have intermittent nausea and dry heaves, but did not have any vomiting. Her vitals were stable and she was afebrile. On the next morning, she was ambulatory, out of bed and in stable condition. Her p.o. intake was noticed to be decreased due to continuous issues with intermittent nausea. She was able to take 2 ounces of fluid every hour and keep it down without any vomiting. She continued to do well and decision was made to keep her for another night for observation given her ongoing intermittent nausea. On discharge morning, she was stable and ambulatory. She has been able to maintain 2 to 3 ounces of fluid every hour without any further complaints of nausea or dry heaves. Her vitals were stable with blood pressure of 138/88, temperature of 98.2, pulse of 68, respiration of 18 with O2 sats of 100% on room air. Her abdominal exam was unremarkable without tenderness, distension, and her incisions were clean, dry, and intact. Her lungs were clear to auscultation bilaterally. The patient is stable to be discharged home and plan for her to follow up with Dr. Quinn next week. I went and discussed with her to resume all her medication as well as to stay on the bariatric stage 1 clear liquid diet and follow all the dietary instructions. DISCHARGE MEDICATIONS: Include: 1. Albuterol inhaler MDI 2 puffs inhaled q.4 hours as needed for shortness of breath. 2. Xanax 0.25 p.o. b.i.d. p.r.n. for anxiety. 3. BuSpar 10 mg p.o. b.i.d. 4. Neurontin 300 mg p.o. t.i.d. 5. Xyzal 5 mg p.o. q.h.s. 6. Effexor 75 mg p.o. b.i.d. 7. Given a script for Zofran 4 mg ODT q.6 hours as needed for nausea. 8. Home script for Lortab Elixir 1 tablespoon q.6h as needed for pain. BETITO ARREGUIN [id number]/[facility] #: [id number] MTDD
== END 2018-04-20 09:45 | disposition home or self-care (01) | DRG 403 ==
LOC: AA 11:36 → SSU 18:27
PROVIDERS: ADMIT Surgery; ATTEND Surgery
PROC: 0DB64Z3 Excision of Stomach, Percutaneous Endoscopic Approach, Vertical (ICD-10-PCS; principal; 2018-04-18 13:00)
DX: E66.01 Morbid (severe) obesity due to excess calories (principal); J45.909 Unspecified asthma, uncomplicated; F41.9 Anxiety disorder, unspecified; F31.9 Bipolar disorder, unspecified; J30.2 Other seasonal allergic rhinitis; G47.33 Obstructive sleep apnea (adult) (pediatric); R11.0 Nausea; Z88.0 Allergy status to penicillin; Z88.9 Allergy status to unspecified drugs, medicaments and biological substances; Z98.51 Tubal ligation status; Z83.3 Family history of diabetes mellitus; Z83.49 Family history of other endocrine, nutritional and metabolic diseases; Z72.89 Other problems related to lifestyle; Z68.41 Body mass index [BMI] 40.0-44.9, adult; Z79.51 Long term (current) use of inhaled steroids; Z56.0 Unemployment, unspecified; Z82.3 Family history of stroke
CPT/HCPCS: 43775; 88307; A9270-GY; J0330; J0360; J0744; J0780; J1100; J1170; J1644; J1885; J2250; J2405; J2704; J2765; J3010; J3490

== ENCOUNTER 2018-04-22 10:20 | Observation (INO) | payer OTHER ==
[2018-04-22] MEDS ORDERED: Ondansetron INJ* 2 MG/ML VIAL IV PRN (13:16)
[2018-04-22] MEDS ORDERED: HYDROmorphone INJ* 0.5 MG/0.5 ML SYRINGE IV PRN (13:16)
[2018-04-22] MEDS ORDERED: HYDROcodone/ACETAMIN 5-325 MG* 1 TAB PO PRN (13:16)
[2018-04-22] MEDS ORDERED: Magnesium Hydroxide LIQ* 30 ML UDC PO PRN (13:29)
[2018-04-22 13:34] LABS: ABS Basophils 0 10^3/ul (0-0.2); ABS Eosinophils 0.1 10^3/ul (0-0.6); ABS Lymphocytes 1.8 10^3/ul (1.0-4.8); ABS Monocytes 0.6 10^3/ul (0-0.8); ABS Neutrophils 7.4 10^3/ul (1.5-7.7); ABS Nucleated RBC 0 10^3/ul; Eosinophil % 1.4 % (0-6); Hematocrit 44 % (35-47); Hemoglobin 14.5 g/dl (12.0-16.0); Mean Corpuscular HGB Conc 33 g/dl (31-36); Mean Corpuscular Hemoglobin 29 pg (27-31); Mean Corpuscular Volume 87 fL (80-97); Mean Platelet Volume 10.2 um3 (7.4-10.4); Nucleated Red Blood Cells % 0.3; Platelet Count 237 10^3/ul (150-450); Red Blood Count 5.06 10^6/ul (4.00-5.40); Red Cell Distribution Width 15 % (10.5-15)
[2018-04-22 13:59] LABS: EGFR Non-African American 95.6 (>60)
--- NOTE | 2018-04-22 15:29 | HP ---
CC: Dr. Lobo Davis HISTORY AND PHYSICAL: DATE OF ADMISSION: This is a readmission update note. HISTORY OF PRESENT ILLNESS: Ms. Cota is a 28-year-old female, who underwent a laparoscopic gastric sleeve resection on 04/18/18 and was discharged home, 04/20/18. She had had nausea at the time of the admission, but was feeling little better when she went home and then last night had lot more nausea, had vomiting during the night with bilious vomiting, and she is not keeping things down now, and has increasing epigastric pain. She says it feels like it may be heartburn. She is taking some Tums, it might have helped a little but she still has a lot of pain. Of note, she did not have gastroesophageal reflux before the surgery. She did not have any fevers or chills at home. She says she has been urinating relatively normally. PHYSICAL EXAMINATION GENERAL: She is a well-developed, well-nourished female, does not appear acutely ill. VITAL SIGNS: Show temperature 98.6, blood pressure 123/75, pulse 80 and regular , respirations 16 and unlabored, O2 saturation 100%, breathing is easy and unlabored. HEART: Regular. ABDOMEN: Obese and soft. She is tender little bit up in the epigastric region. The incisions are well healed. There is no rigidity or guarding or peritonitis. SKIN: Warm, well perfused. She is not diaphoretic. IMPRESSION: This 28-year-old female now 4 days out from a laparoscopic gastric sleeve with increased nausea, vomiting, and abdominal pain. PLAN: We will get blood work. If she has an elevated white blood count and a big left shift, then one could consider dye study to evaluate for leak; however , overall the clinical picture does not look typical for leak, it almost looks more like acid reflux. I am going to put her on a proton pump inhibitor, hydration, and analgesia, and we will see how she responds. [id number]/[facility] #: [id number] [facility] CENTERJus
[2018-04-22 15:57] VITALS: BP 137/62
[2018-04-22] MEDS ORDERED: Omeprazole CAP* 20 MG PO ONE (17:15)
[2018-04-22] MEDS ORDERED: Omeprazole CAP* 20 MG ONE (17:15)
--- NOTE | 2018-04-23 01:21 | DS ---
DISCHARGE SUMMARY: DATE OF ADMISSION: 04/22/18 DATE OF DISCHARGE: 04/22/18 HISTORY: The patient is a 28-year-old female who had laparoscopic sleeve gastrectomy on 04/18/18 and was discharged on 04/20/18. She had increasing nausea, epigastric abdominal pain, and episodes of vomiting the evening of 04/21 into the morning of 04/22/18. She came to the hospital and was admitted for observation. Her blood work was essentially normal. She was rehydrated, given omeprazole and Zofran, and after several hours was feeling much better, so she is discharged home. Will continue on the bariatric liquid diet and will follow up in the office next week. [id number]/[facility] #: [id number] MTDD
[2018-04-23] MEDS ORDERED: Omeprazole CAP* 20 MG PO SCH (06:00)
== END 2018-04-22 17:56 | disposition home or self-care (01) ==
LOC: SSU 12:18
PROVIDERS: ADMIT Surgery; ATTEND Surgery
DX: R10.9 Unspecified abdominal pain (principal); R11.2 Nausea with vomiting, unspecified
CPT/HCPCS: 36415; 80048; 85025; A9270-GY; G0378

== ENCOUNTER 2019-01-09 09:30 | Emergency (ER) | payer OTHER ==
[2019-01-09 09:55] LABS: ABS Basophils 0 10^3/ul (0-0.2); ABS Eosinophils 0.1 10^3/ul (0-0.6); ABS Lymphocytes 1.7 10^3/ul (1.0-4.8); ABS Monocytes 0.4 10^3/ul (0-0.8); ABS Neutrophils 3.1 10^3/ul (1.5-7.7); ABS Nucleated RBC 0 10^3/ul; Eosinophil % 2.6 %; Hematocrit 39 % (33-41); Lymphocyte % 31.5 %; Mean Corpuscular HGB Conc 34 g/dL (31-36); Mean Corpuscular Hemoglobin 30 pg (27-31); Mean Corpuscular Volume 89 fL (80-97); Mean Platelet Volume 9.5 fL (7.4-10.4); Nucleated Red Blood Cells % 0; Platelet Count 205 10^3/uL (150-450); Red Blood Count 4.37 10^6 /uL (3.70-4.87); Red Cell Distribution Width 14 % (10.5-15); White Blood Count 5.4 10^3/uL (3.5-10.8)
[2019-01-09] MEDS ORDERED: Thiamine IV 100 MG, Folic Acid IV* 1 MG, Multiple Vitamin IV ADULT* 10 ML in D5NS 0.9% ... IV ONE (09:57)
--- NOTE | 2019-01-09 09:57 | ED ---
GI/ HPI - HPI Summary HPI Summary: A 28 y/o female presents to [facility] with a chief complaint of flank pain for the past 3 weeks. She denies any hematuria or dysuria. She also notes that she has had dizziness. She reports that yesterday she had a witnessed syncopal episode when standing up and lost consciousness for about 3 seconds. She notes that her right side of her right thigh is bruised from the fall. She states that her current flank pain is the worst that shes ever had. Pt is intermittent, but doesn't go away. She went to her urologist in [place] two days ago, and a CT was ordered to look for kidney stones. Pt states waiting for approval for study. The patient reports that she had a recent infection that was treated with Cipro, finishing on 01/03/19. She also notes that she had a gastric sleeve placed by Dr. Quinn on 04/18/18. She denies chance of as she had a tubal ligation. She reports having a , having three children (twins are 5 y/o, and a 9 y/o). She denies smoking or drug use, but admits to occasional EtOH use. She reports taking Tylenol for her pain. 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 She discussed her case with a Dr. Quinn' office this morning - pt referred the patient to the ED for further eval of kidney Patient's medication reviewed this visit. - History of Current Complaint Chief Complaint: EDFlankPain Time Seen by Provider: 01/09/19 09:39 Stated Complaint: LEFT FLANK PAIN/SYNCOPE PER PT Hx Obtained From: Patient Hx Last Menstrual Period: 08/14/17 Onset/Duration: Started Weeks Ago, Still Present Timing: Constant, Lasting Weeks Severity: Moderate Current Severity: Moderate Pain Intensity: 6 - out of 10 Location of Pain: Flank Pain Characteristics: Unable to describe Associated Signs and Symptoms: Positive: Dizziness. Negative: Fever Aggravating Factor(s): Nothing Alleviating Factor(s): Nothing - Allergy/Home Medications Allergies/Adverse Reactions: Allergies Allergy/AdvReac Type Severity Reaction Status Date / Time cefaclor [From Ceclor] Allergy Severe GI Upset Verified 01/09/19 09:38 erythromycin base Allergy Severe Rash Verified 01/09/19 09:38 Penicillins Allergy Severe Rash Verified 01/09/19 09:38 sulfamethoxazole Allergy Intermediate GI Upset Verified 01/09/19 09:39 [From Bactrim] trimethoprim [From Bactrim] Allergy Intermediate GI Upset Verified 01/09/19 09: 39 Seasonal/Environmental Allergy Severe See Comment Uncoded 01/09/19 09:38 Allergies PMH/Surg Hx/FS Hx/Imm Hx Previously Healthy: Yes Endocrine/Hematology History: Denies: Hx Anticoagulant Therapy, Hx Diabetes, Hx Sickle Cell Disease Cardiovascular History: Denies: Hx Hypertension, Other Cardiovascular Problems/Disorders Respiratory History: Reports: Hx Asthma - allergy induced, Hx Seasonal Allergies , Hx Sleep Apnea Denies: Other Respiratory Problems/Disorders GI History: Denies: Other GI Disorders History: Reports: Hx Kidney Infection - 4 infections, Hx Kidney Stones - history of, Other Problems/Disorders - UTIs on occasion Musculoskeletal History: Reports: Hx Arthritis - bilateral knees Denies: Other Musculoskeletal History Sensory History: Denies: Hx Contacts or Glasses, Hx Hearing Aid Opthamlomology History: Denies: Hx Contacts or Glasses Neurological History: Denies: Other Neuro Impairments/Disorders Psychiatric History: Reports: Hx Anxiety - on medication, Bipolar, Hx Depression - on medication, Bipolar Denies: Hx Eating Disorder, Hx of Violent Episodes Against Others - Cancer History Hx Chemotherapy: No - Surgical History Surgery Procedure, Year, and Place: 2012 [place]. Tubal ligation, 2012. Gastric Sleeve 03/2018 Hx Anesthesia Reactions: No - Immunization History Date of Influenza Vaccine: 06/2017 Infectious Disease History: No Infectious Disease History: Denies: Hx of Known/Suspected MRSA, History Other Infectious Disease, Traveled Outside the [place] in Last 30 Days - Family History Known Family History: Positive: Other - migraines, Non-Contributory Family History: stroke - Social History Occupation: Employed Full-time Lives: With Family Alcohol Use: Occasionally Hx Substance Use: No Substance Use Type: Reports: None Hx Tobacco Use: No Smoking Status (MU): Never Smoked Tobacco Review of Systems Negative: Fever Positive: flank pain. 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 EOM intact and full ENT: Hearing grossly normal TM x 2 clear, mmpasty, uvula midline, no exudate, no erythema Neck: Positive: Supple Respiratory: Positive: No respiratory distress, No accessory muscle use + CTA throughout no w/r Cardiovascular: RRR nl s1, s2 no m/r CBT <2 sec abd soft + BS nt/nd no guarding, no distension mild left CVA Musculoskeletal Exam: HARKINS x 4 without difficulty Strength Intact, ROM Intact Neurological: Positive: Alert, + sensation throughout Psychological: Positive: Normal Response To Family Skin: Positive: no rash, no ecchymosis Triage Information Reviewed: Yes Vital Signs On Initial Exam: Initial Vitals Temp Pulse Resp BP Pulse Ox 97.6 F 88 17 102/79 100 01/09/19 09:30 01/09/19 09:30 01/09/19 09:30 01/09/19 09:30 01/09/19 09:30 Vital Signs Reviewed: Yes Diagnostics - Vital Signs Vital Signs Temp Pulse Resp BP Pulse Ox 01/09/19 09:30 97.6 F 88 17 102/79 100 - Laboratory Result Diagrams: 01/09/19 09:46 01/09/19 09:46 Lab Statement: Any lab studies that have been ordered have been reviewed, and results considered in the medical decision making process. - CT abdomen/pelvis CT Interpretation Completed By: Radiologist Summary of CT Findings: No obstructive uropathy is noted. ED physician has reviewed this imaging report. Re-Evaluation - Re-Evaluation First Eval Re-Evaluation Time: 10:18 Change: Unchanged Comment: Blood sugar was 47, Pt refused juice and is eating ice cream. will recheck Second Eval Re-Evaluation Time: 11:04 Change: Improved Comment: Blood sugar improved to 121. Labs and CT reviewed. Pt receiving fluids. will d/w surgery - anticipate d/ c home. Pt given CT disc of the images - urology at [facility]. Pt comfortable and in agreement with plan Third Eval Re-Evaluation Time: 12:17 Change: Unchanged Comment: Discussed results and plan of DC and follow up with Bariatric Surgery this week. strict return precautions GIGU Course/Dx - Course Course Of Treatment: Patient presents to the ED reporting 3 weeks of continual but intermittent increasing pain in her left flank. Patient states she was treated for UTI with Cipro. Patient states she has no dysuria or hematuria. Patient states she has a remote history of renal stones but did not require surgery. Patient states she saw urologist at the outside hospital who ordered a CAT scan. Patient has not gotten this improved gets a hasn't had. Patient states she's been taking Tylenol for her pain. No cp, sob, abd pain no n/v/d. VSS. Exam consistent with mild dehydration left flank pain. Patient is not extremity. We'll give IV fluid banana bag. We'll check labs. With CT noncontrast for renal stones. We'll check a urine. We'll check on the patient states she's had a tubal ligation. We'll reassess. We'll check an EKG as well as orthostatics. Patient comfortable in agreement with plan. - Diagnoses Provider Diagnoses: Flank pain - Physician Notifications Discussed Care Of Patient With: Thaddeus Lomas Time Discussed With Above Provider: 12:17 Instructed by Provider To: Other - Recommends patient discharge and follow up with bariatric surgery this week. return precautions Discharge - Sign-Out/Discharge Documenting (check all that apply): Patient Departure Patient Received Moderate/Deep Sedation with Procedure: No - Discharge Plan Condition: Stable Disposition: HOME Patient Education Materials: Non-diabetic Hypoglycemia (ED), Flank Pain (ED) Forms: *Work Release Referrals: Barber Lara JR, PA [Primary Care Provider] - Chucky uQinn MD [Medical Doctor] - Additional Instructions: - Eat frequent, small meals - If you start to feel lightheaded - it is recommended you try eating something with sugar (juice etc)to see if this improves your symptoms - Slowly change position - lying to sitting, sitting to standing - Contact the general surgery office today to schedule a follow-up appointment with Dr. Casillas or Dr. Quinn this week - Contact your urologist to schedule a follow-up appointment If you have any concerns - vomiting, increased pain, inabilty to eat, shortness of breath or any other concenrs it is recommended you contact your surgeon or return with questions - Billing Disposition and Condition Condition: STABLE Disposition: Home - Attestation Statements Document Initiated by Scribe: Yes Documenting Scribe: Lake Schwarz Provider For Whom Scribe is Documenting (Include Credential): Aparna Lock MD Scribe Attestation: ILake, scribed for Aparna Lock MD on 01/09/19 at 1223. Scribe Documentation Reviewed: Yes Provider Attestation: The documentation as recorded by the scribe, Lake Schwarz accurately reflects the service I personally performed and the decisions made by me, Aparna Lock MD Status of Scribe Document: Viewed
--- OUTSIDE RECORDS SUMMARY | 2019-01-09 10:10 | XMS REPORT | Continuity of Care Document ---
:1990 External Reference #:[id number] Author Name Maggie Garcia M.D. 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 ETOH Use Occasionally consumes alcohol Tobacco Use Start: Unknown Patient denies history of smoking Recreational Drug Use Denies Drug Use Smoking Status Reviewed: 01/01/19 Patient denies history of smoking Allergies, Adverse Reactions, Alerts Active Allergies Reaction Severity Comments Date Cefaclor 01/07/2019 Bactrim 01/07/2019 Erythromycin 01/07/2019 Penicillin 01/07/2019 Medications Active Medications SIG Qnty Indications Ordering Provider Date Venlafaxine HCL ER 2 Tblets By Mouth Unknown 75mg Qday Caps ER 24HR Omeprazole 1 Tablet By Mouth Chucky Quinn, 20mg Capsules Qday MD GARCIA Gabapentin 2 tablets by Unknown 100mg Capsules mouth bid Vitamin B-12 1 Tablet By Unknown 50mcg Mouth Qday Lozenges Vitamin B1 1 by mouth every Unknown 100mg Tablets day Probiotic 1 by mouth bid Unknown Capsules Biotin 1/2 Tablet by Unknown 5000mcg Capsules mouth every day D3 Super Strength 1 Tablet By Mouth Unknown Qday 2000Unit Capsules Flintstones Complete every day Unknown 60mg Chewtabs Immunizations Description No Information Available Vital Signs Date Vital Result Comment 01/07/2019 11:20am BP Systolic 127 mmHg BP Diastolic 85 mmHg Body Temperature 98.4 F Heart Rate 86 /min Respiratory Rate 16 /min Height 64 inches 5'4" Weight 144.00 lb BMI (Body Mass Index) 24.7 kg/m2 BSA (Body Surface Area) 1.70 m2 [place] body weight in kilograms 54 kg O2 % BldC Oximetry 97 % Pain Level 5 Left flank pain Results Test Date Facility Test Result H/L Range Note Urine Dipstick 01/07/2019 [facility] Ua Color Yellow Yellow Ua Clarity Clear Clear Ua Leuko Negative Negative Ua Nitrite Negative Negative Ua Urobilinogen 0.2 0.2 - 1.0 E.U./dL Ua Protein Negative Negative Ua PH 7.0 6.5-7.5 Ua Blood Negative Negative Ua Specific [place] 1.020 1.010-1.030 Ua Ketones Negative Negative Ua Bilirubin Negative Negative Ua Glucose Negative Negative Procedures Description No Information Available Encounters Type Date Location Provider Dx Diagnosis Office Visit 01/07/2019 11:30a Urology Avelino Velasco, N20.0 Calculus of kidney PA Plan of Treatment 01/07/2019 - Avelino Velasco, PAN20.0 Calculus of kidneyNew Xrays:CT, Abdomen & Pelvis W/O Contrast, Ordered: 01/07/19Comments:Today's urine dips negative. We'll schedule her for a CT abdomen and pelvis noncontrast to better quantify her stone burden. Follow-up after
[2019-01-09 10:12] LABS: ALT 16 U/L (7-52); AST 19 U/L (13-39); Albumin 4.1 g/dL (3.2-5.2); Albumin/Globulin Ratio 1.5 (1-3); Alkaline Phosphatase 42 U/L (34-104); Anion Gap 5 mmol/L (2-11); BUN/Creatinine Ratio 29.6 (8-20); Blood Urea Nitrogen 16 mg/dL (6-24); CO2 Carbon Dioxide 27 mmol/L (22-32); Calcium 9.3 mg/dL (8.6-10.3); Chloride 106 mmol/L (101-111); EGFR African American 163.9 (>60); EGFR Non-African American 135.4 (>60); Globulin 2.8 g/dL (2-4); Magnesium 1.8 mg/dL (1.9-2.7); Potassium 3.7 mmol/L (3.5-5.0); Sodium 138 mmol/L (135-145); Total Protein 6.9 g/dL (6.4-8.9)
[2019-01-09 10:15] LABS: Glucose 47 mg/dL (70-100)
[2019-01-09 10:18] LABS: HCG Pregnancy < 0.60 mIU/mL
[2019-01-09 10:28] LABS: Urine Appearance Clear; Urine Bilirubin Negative (Negative); Urine Blood Negative (Negative); Urine Color Yellow; Urine Glucose Negative (Negative); Urine Ketones Negative (Negative); Urine Nitrite Negative (Negative); Urine Protein Negative (Negative); Urine Specific Gravity 1.023 (1.010-1.030); Urine Urobilinogen Negative (Negative)
[2019-01-09 12:10] LABS: Vitamin D Total 25(OH) 54.3 ng/mL (20-50)
[2019-01-09 12:43] VITALS: BP 117/81
== END 2019-01-09 12:43 | disposition home or self-care (01) ==
LOC: ED 09:30
DX: R10.9 Unspecified abdominal pain (principal); Z88.0 Allergy status to penicillin; Z88.2 Allergy status to sulfonamides
CPT/HCPCS: 36415; 74176; 80053; 81003; 82306; 82607; 83690; 83735; 84425; 84702; 85025; 93005; 96360; 96361; 99283; J3411

== ENCOUNTER 2019-01-15 10:01 | Emergency (ER) | payer OTHER ==
[2019-01-15 10:12] VITALS: BP 107/73
--- NOTE | 2019-01-15 11:16 | ED ---
Dizziness - HPI Summary HPI Summary: Patient is a 28 y/o female who presents to the ED c/o dizziness. Last week she had a syncopal episode and was diagnosed with postprandial hypoglycemia the next day. Patient has not been taking any medications for this and is unsure how to control it yet. This morning she was at work and felt dizzy and shaky. Patient measured her BG and it was 38. She reports having several fluctuations of her BG per day, however her BG has never been this low. She then had some orange juice, crackers, and candy and immediately felt better. Before going to work she notes that she had yogurt and a protein bar for breakfast. Patient had a gastric sleeve in March 2018 and believes this is the cause of her hypoglycemic episodes. She denies any hx of DM. - History Of Current Complaint Chief Complaint: EDDiabeticProb Stated Complaint: LOW BLOOD SUGAR PER PT Hx Obtained From: Patient Onset/Duration: Resolved Timing: Weeks - ~1 Severity Currently: None Character: Dizzy Alleviating Factor(s): Glucose - orange juice, crackers, candy Associated Signs And Symptoms: Positive: Other: - shakiness Related History: Similar Episode/Dx as - last week syncope - Allergies/Home Medications Allergies/Adverse Reactions: Allergies Allergy/AdvReac Type Severity Reaction Status Date / Time cefaclor [From Ceclor] Allergy Severe GI Upset Verified 01/09/19 09:38 erythromycin base Allergy Severe Rash Verified 01/09/19 09:38 Penicillins Allergy Severe Rash Verified 01/09/19 09:38 sulfamethoxazole Allergy Intermediate GI Upset Verified 01/09/19 09:39 [From Bactrim] trimethoprim [From Bactrim] Allergy Intermediate GI Upset Verified 01/09/19 09: 39 Seasonal/Environmental Allergy Severe See Comment Uncoded 01/09/19 09:38 Allergies PMH/Surg Hx/FS Hx/Imm Hx Endocrine/Hematology History: Denies: Hx Anticoagulant Therapy, Hx Diabetes, Hx Sickle Cell Disease Cardiovascular History: Denies: Hx Hypertension, Other Cardiovascular Problems/Disorders Respiratory History: Reports: Hx Asthma - allergy induced, Hx Seasonal Allergies , Hx Sleep Apnea Denies: Other Respiratory Problems/Disorders GI History: Denies: Other GI Disorders History: Reports: Hx Kidney Infection - 4 infections, Hx Kidney Stones - history of, Other Problems/Disorders - UTIs on occasion Musculoskeletal History: Reports: Hx Arthritis - bilateral knees Denies: Other Musculoskeletal History Sensory History: Denies: Hx Contacts or Glasses, Hx Hearing Aid Opthamlomology History: Denies: Hx Contacts or Glasses Neurological History: Denies: Other Neuro Impairments/Disorders Psychiatric History: Reports: Hx Anxiety - on medication, Bipolar, Hx Depression - on medication, Bipolar Denies: Hx Eating Disorder, Hx of Violent Episodes Against Others - Cancer History Hx Chemotherapy: No - Surgical History Surgery Procedure, Year, and Place: 2013 [place]. Tubal ligation, 2012. Gastric Sleeve 03/2018 Hx Anesthesia Reactions: No - Immunization History Date of Influenza Vaccine: 06/2017 Infectious Disease History: No Infectious Disease History: Denies: Hx of Known/Suspected MRSA, History Other Infectious Disease, Traveled Outside the [place] in Last 30 Days - Family History Known Family History: Positive: Other - migraines, stroke - Social History Alcohol Use: Occasionally Hx Substance Use: No Substance Use Type: Reports: None Hx Tobacco Use: No Smoking Status (MU): Never Smoked Tobacco Review of Systems Positive: Other - shakiness Neurological: Other - Dizziness All Other Systems Reviewed And Are Negative: Yes Physical Exam - Summary Physical Exam Summary: Constitutional: Well-developed, Well-nourished, Alert. (-) Distressed Skin: Warm, Dry HENT: Normocephalic; Atraumatic Eyes: Conjunctiva normal Neck: Musculoskeletal ROM normal neck. (-) JVD, (-) Stridor, (-) Tracheal deviation Cardio: Rhythm regular, rate normal, Heart sounds normal; Intact distal pulses; The pedal pulses are 2+ and symmetric. Radial pulses are 2+ and symmetric. (-) Murmur Pulmonary/Chest wall: Effort normal. (-) Respiratory distress, (-) Wheezes, (-) Rales Abd: Soft, (-) tenderness, (-) Distension, (-) Guarding, (-) Rebound Musculoskeletal: (-) Edema Lymph: (-) Cervical adenopathy Neuro: Alert, Oriented x3 Psych: Mood and affect Normal Triage Information Reviewed: Yes Vital Signs On Initial Exam: Initial Vitals Temp Pulse Resp BP Pulse Ox 97.8 F 87 20 107/73 100 01/15/19 10:01/15/19 10:01/15/19 10:01/15/19 10:01/15/19 10:09 Vital Signs Reviewed: Yes Diagnostics - Vital Signs Vital Signs Temp Pulse Resp BP Pulse Ox 01/15/19 10:09 97.8 F 87 20 107/73 100 - Laboratory Lab Results: Lab Results 01/15/19 Range/Units 10:09 POC Glucose (mg/dL) 180 H (70-100) mg/dL Lab Statement: Any lab studies that have been ordered have been reviewed, and results considered in the medical decision making process. Dizzy Course/Dx - Course Course Of Treatment: Patient is a 28 y/o female who presents to the ED c/o dizziness and shakiness this morning, and had a BG of 38. Last week she had a syncopal episode and was diagnosed with postprandial hypoglycemia. She then had some orange juice, crackers, and candy and immediately felt better. She denies any hx of DM. A physical exam was normal. Patient was alert and oriented, calm, and capable of making her own decisions. Repeat BG was 180. Patient agreed to give a urine sample for a UA and a fingerstick BG and wait until the results were back, however she left before completing the services. Final dx is hypoglycemia, and disposition is elopement. - Diagnoses Provider Diagnoses: Hypoglycemia Discharge - Sign-Out/Discharge Documenting (check all that apply): Patient Departure - Elopement Patient Received Moderate/Deep Sedation with Procedure: No - Discharge Plan Condition: Improved Disposition: ELOPEMENT Referrals: Barber Lara JR, PA [Primary Care Provider] - - Attestation Statements Document Initiated by Scribe: Yes Documenting Scribe: Екатерина Kennedy Provider For Whom Scribe is Documenting (Include Credential): Lay Scott MD Scribe Attestation: Екатерина Blum, scribed for Lay Ferrara MD on 01/15/19 at 1123. Status of Scribe Document: Ready
== END 2019-01-15 10:56 | disposition home or self-care (01) ==
LOC: ED 10:01
DX: E16.2 Hypoglycemia, unspecified (principal)
CPT/HCPCS: 99281

== ENCOUNTER → 2019-02-04 13:06 | Emergency (ER) | payer OTHER ==
[2019-02-04 13:14] VITALS: BP 118/87
[2019-02-04 13:42] LABS: ABS Eosinophils 0.1 10^3/ul (0-0.6); ABS Monocytes 0.4 10^3/ul (0-0.8); ABS Neutrophils 2.8 10^3/ul (1.5-7.7); Eosinophil % 2.4 %; Hematocrit 41 % (35-47); Hemoglobin 13.3 g/dL (12.0-16.0); Lymphocyte % 37.8 %; Mean Corpuscular HGB Conc 33 g/dL (31-36); Mean Corpuscular Hemoglobin 30 pg (27-31); Mean Corpuscular Volume 90 fL (80-97); Mean Platelet Volume 9.9 fL (7.4-10.4); Nucleated Red Blood Cells % 0.1; Platelet Count 184 10^3/uL (150-450); Red Blood Count 4.51 10^6 /uL (3.70-4.87); Red Cell Distribution Width 13 % (10.5-15); White Blood Count 5.4 10^3/uL (3.5-10.8)
[2019-02-04 13:48] LABS: INR 1.07 (0.82-1.09)
[2019-02-04 14:00] LABS: Albumin 4.3 g/dL (3.2-5.2); Albumin/Globulin Ratio 1.4 (1-3); BUN/Creatinine Ratio 30.2 (8-20); Calcium 9.5 mg/dL (8.6-10.3); EGFR African American 167.4 (>60); EGFR Non-African American 138.4 (>60); Globulin 3.1 g/dL (2-4); Potassium 4.1 mmol/L (3.5-5.0); Total Bilirubin 0.4 mg/dL (0.2-1.0); Total Protein 7.4 g/dL (6.4-8.9)
[2019-02-04 14:06] LABS: HCG Pregnancy 1.34 mIU/mL
== END | disposition left against medical advice (07) ==
LOC: ED 13:06
DX: Z53.21 Procedure and treatment not carried out due to patient leaving prior to being seen by health care provider (principal)
CPT/HCPCS: 36415; 80053; 84702; 85025; 85610

== ENCOUNTER 2019-02-21 10:15 | Emergency (ER) | payer MEDICAID ==
[2019-02-21] MEDS ORDERED: Thiamine IV 100 MG, Folic Acid IV* 1 MG, Multiple Vitamin IV ADULT* 10 ML in D5NS 0.9% ... IV ONE (10:34)
--- NOTE | 2019-02-21 10:42 | ED ---
GI/ HPI - HPI Summary HPI Summary: This patient is a 28 year old female presenting to [facility] with a chief complaint of hypoglycemia yesterday. The patient states she recently had a stomach bug within the last couple days s/p gastric sleeve surgery and should be checking her blood sugar every day. The patient states when she eats candy she can only get her glucose into a normal range temporarily. She states she may be dehydrated. The patient had N/V yesterday. She rates her pain 3/10 in severity. The patient reports abdominal pain, fatigue, dizziness, and diarrhea. Pt denies any fever, chills, erythema of eyes, sore throat, CP, SOB, cough, dysuria, hematuria, myalgia, edema, or rash. - History of Current Complaint Chief Complaint: EDDiabeticProb Time Seen by Provider: 02/21/19 10:34 Stated Complaint: LOW BLOOD SUGAR PER PT Hx Obtained From: Patient Hx Last Menstrual Period: 08/14/17 Onset/Duration: Started Days Ago Timing: Constant Severity: Mild Current Severity: Mild Pain Intensity: 3 - Allergy/Home Medications Allergies/Adverse Reactions: Allergies Allergy/AdvReac Type Severity Reaction Status Date / Time cefaclor [From Ceclor] Allergy Severe GI Upset Verified 02/21/19 10:18 erythromycin base Allergy Severe Rash Verified 02/21/19 10:18 Penicillins Allergy Severe Rash Verified 02/21/19 10:18 sulfamethoxazole Allergy Intermediate GI Upset Verified 02/21/19 10:18 [From Bactrim] trimethoprim [From Bactrim] Allergy Intermediate GI Upset Verified 02/21/19 10: 18 Seasonal/Environmental Allergy Severe See Comment Uncoded 02/21/19 10:18 Allergies Home Medications: Home Medications Acarbose 25 mg PO TID 02/21/19 [History Confirmed 02/21/19] Biotin 2,500 mcg PO DAILY 02/21/19 [History Confirmed 02/21/19] Cholecalciferol (Vitamin D3) [Vitamin D3] 2,000 unit PO DAILY 02/21/19 [History Confirmed 02/21/19] Cyanocobalamin (Vitamin B-12) [Vitamin B-12] 500 mcg PO DAILY 02/21/19 [History Confirmed 02/21/19] L.acidoph,Paracasei, B.lactis [Probiotic] 1 each PO DAILY 02/21/19 [History Confirmed 02/21/19] Pedi Multivit No.25/Folic Acid [Flintstones Multivit Chew Tab] 300 mcg PO DAILY 02/21/19 [History Confirmed 02/21/19] Thiamine TAB* [Vitamin B-1 TAB*] 100 mg PO DAILY 02/21/19 [History Confirmed ] PMH/Surg Hx/FS Hx/Imm Hx Endocrine/Hematology History: Denies: Hx Anticoagulant Therapy, Hx Diabetes, Hx Sickle Cell Disease Cardiovascular History: Denies: Hx Hypertension, Other Cardiovascular Problems/Disorders Respiratory History: Reports: Hx Asthma - allergy induced, Hx Seasonal Allergies , Hx Sleep Apnea Denies: Other Respiratory Problems/Disorders GI History: Denies: Other GI Disorders History: Reports: Hx Kidney Infection - 4 infections, Hx Kidney Stones - history of, Other Problems/Disorders - UTIs on occasion Musculoskeletal History: Reports: Hx Arthritis - bilateral knees Denies: Other Musculoskeletal History Sensory History: Denies: Hx Contacts or Glasses, Hx Hearing Aid Opthamlomology History: Denies: Hx Contacts or Glasses Neurological History: Denies: Other Neuro Impairments/Disorders Psychiatric History: Reports: Hx Anxiety - on medication, Bipolar, Hx Depression - on medication, Bipolar Denies: Hx Eating Disorder, Hx of Violent Episodes Against Others - Cancer History Hx Chemotherapy: No - Surgical History Surgery Procedure, Year, and Place: 2012 [place]. Tubal ligation, 2012. Gastric Sleeve 03/2018 Hx Anesthesia Reactions: No - Immunization History Date of Influenza Vaccine: 06/2017 Infectious Disease History: No Infectious Disease History: Denies: Hx of Known/Suspected MRSA, History Other Infectious Disease, Traveled Outside the [place] in Last 30 Days - Family History Known Family History: Positive: Other - migraines, stroke - Social History Alcohol Use: Occasionally Hx Substance Use: No Substance Use Type: Reports: None Hx Tobacco Use: No Smoking Status (MU): Never Smoked Tobacco Review of Systems Positive: Fatigue. Negative: Fever, Chills Negative: Erythema Negative: Sore Throat Negative: Chest Pain Negative: Shortness Of Breath, Cough Positive: Abdominal Pain, Vomiting, Diarrhea, Nausea Positive: other - Hypoglycemia. Negative: dysuria, hematuria Negative: Myalgia, Edema Negative: Rash Neurological: Other - Dizziness All Other Systems Reviewed And Are Negative: No Physical Exam - Summary Physical Exam Summary: Constitutional: Well-developed, Well-nourished, Alert. (-) Distressed Skin: Warm, Dry HENT: Normocephalic; Atraumatic. Dry mucous membranes. Eyes: Conjunctiva normal Neck: Musculoskeletal ROM normal neck. (-) JVD, (-) Stridor, (-) Tracheal deviation Cardio: Rhythm regular, rate normal, Heart sounds normal; Intact distal pulses; The pedal pulses are 2+ and symmetric. Radial pulses are 2+ and symmetric. (-) Murmur Pulmonary/Chest wall: Effort normal. (-) Respiratory distress, (-) Wheezes, (-) Rales Abd: Soft, (-) tenderness, (-) Distension, (-) Guarding, (-) Rebound Musculoskeletal: (-) Edema Lymph: (-) Cervical adenopathy Neuro: Alert, Oriented x3 Psych: Mood and affect Normal Triage Information Reviewed: Yes Vital Signs On Initial Exam: Initial Vitals Temp Pulse Resp BP Pulse Ox 98.0 F 69 18 104/69 100 02/21/19 10:16 02/21/19 10:16 02/21/19 10:16 02/21/19 10:16 02/21/19 10:16 Vital Signs Reviewed: Yes Diagnostics - Vital Signs Vital Signs Temp Pulse Resp BP Pulse Ox 02/21/19 10:16 98.0 F 69 18 104/69 100 - Laboratory Result Diagrams: 02/21/19 10:49 02/21/19 10:49 Lab Statement: Any lab studies that have been ordered have been reviewed, and results considered in the medical decision making process. GIGU Course/Dx - Course Course Of Treatment: This patient is a 28 year old female presenting to [facility] with a chief complaint of hypoglycemia yesterday. Patient eloped against medical advice shortly after being seen without indication or notice. We did notify Dr. Mccarthy's office and the patient was in the emergency department and eloped. She is certainly at risk for vitamin deficiency, we did order her a banana bag however was not able to be administered during a short time she was here. - Diagnoses Provider Diagnoses: Gastroenteritis, Dehydration Discharge - Sign-Out/Discharge Documenting (check all that apply): Patient Departure - Elopement Patient Received Moderate/Deep Sedation with Procedure: No - Discharge Plan Condition: Good Disposition: ELOPEMENT Referrals: Barber Lara JR PA [Primary Care Provider] - - Billing Disposition and Condition Condition: GOOD Disposition: Elopement - Attestation Statements Document Initiated by Ming: Yes Documenting Scribe: Reymundo Rosario Provider For Whom Ming is Documenting (Include Credential): Jin Hanson MD Scribe Attestation: Reymundo Blum, scribed for Jin Hanson MD on 02/21/19 at 1956. Scribe Documentation Reviewed: Yes Provider Attestation: The documentation as recorded by the Reymundo lenz accurately reflects the service I personally performed and the decisions made by me, Jin Hanson MD Status of Scribe Document: Viewed
[2019-02-21 11:07] LABS: Hematocrit 37 % (35-47); Hemoglobin 12.6 g/dL (12.0-16.0); Mean Corpuscular HGB Conc 34 g/dL (31-36); Mean Corpuscular Hemoglobin 30 pg (27-31); Mean Corpuscular Volume 89 fL (80-97); Mean Platelet Volume 10.1 fL (7.4-10.4); Platelet Count 191 10^3/uL (150-450); Red Blood Count 4.19 10^6 /uL (3.70-4.87); Red Cell Distribution Width 13 % (10.5-15); White Blood Count 3.6 10^3/uL (3.5-10.8)
[2019-02-21] MEDS ORDERED: NS 0.9% 1000 ML** 1,000 ML IV ONE (11:08)
[2019-02-21 11:16] LABS: Albumin 3.7 g/dL (3.2-5.2); Albumin/Globulin Ratio 1.3 (1-3); Calcium 8.9 mg/dL (8.6-10.3); EGFR African American 145.1 (>60); EGFR Non-African American 119.9 (>60); Globulin 2.9 g/dL (2-4); Potassium 3.3 mmol/L (3.5-5.0); Total Bilirubin 0.5 mg/dL (0.2-1.0); Total Protein 6.6 g/dL (6.4-8.9)
[2019-02-21 11:24] VITALS: BP 101/70
== END 2019-02-21 11:24 | disposition home or self-care (01) ==
LOC: ED 10:15
DX: K52.9 Noninfective gastroenteritis and colitis, unspecified (principal); E86.0 Dehydration; Z88.3 Allergy status to other anti-infective agents; Z88.8 Allergy status to other drugs, medicaments and biological substances; Z88.2 Allergy status to sulfonamides; Z98.84 Bariatric surgery status
CPT/HCPCS: 36415; 80053; 85027; 99283; J3411

== ENCOUNTER 2019-07-03 13:54 | Emergency (ER) | payer OTHER ==
[2019-07-03 14:03] VITALS: BP 114/70
--- OUTSIDE RECORDS SUMMARY | 2019-07-03 14:13 | XMS REPORT ---
:1990 Author Organization [facility] Address [address] [place] [place] [address] Care Team Providers Name Role Phone Johnnie Su Unavailable Unavailable PROBLEMS Type Condition ICD9-CM Code [id number] Code Onset Dates Condition SNOMED Code Status Problem Depression 311 Active 72655444 Problem Anxiety F41.9 Active [id number] ALLERGIES No Information ENCOUNTERS Encounter Location Date Diagnosis [facility] [address] [place], [place] [address] [facility] [address] [place], [place] [address] [facility] [address] [place], [place] [address] [facility] [address] [place] [address] [facility] [address] [place] [address] [place] [address] [facility] [address] [place] [address] [facility] [address] [place] [address] [place] [address] [facility] [address] [place] [address] [facility] [address] [place] [address] [place], [place] [address] [place], [place] [address], [place] [address], [place] [address] [place] [facility] [address] [place] [address] [place], [place] [address] [place] [facility] [address] [place] [address] [place] [facility] [address] [place], [place] [address] [place] [facility] [address] [place], [place] [address] [place] [facility] [address] [place], [place], [place] F41.9 [place] [address] [place] [facility] [address] [place], [place] [address] [place] [facility] [address] [place], [place] [address] [place] [facility] [address] [place], [place] [address] [place] [facility] [address] [place], [place] [address] [place] [facility] [address] [place], [place], Abdominal [place] 789.[address] [place] [address] and Pelvic pain in female 625.[address] [place], [place] [address] [place], [place] [address] [place] [facility] [address] [place], [place] [address] [place] [facility] [address] [place], [place], Abdominal [place] 789.[address] [place] [address] and CERVICITIS 616.0 [place] [facility] [address] [place], [place] [address] [place] [facility] [address] [place] [address] [place] [facility] [address] [place] [address] [place] [facility] [address] [place], [place] [address] [place] [facility] [address] [place], [place] [address] IMMUNIZATIONS No Known Immunizations SOCIAL HISTORY Never Assessed REASON FOR REFERRAL FUNCTIONAL STATUS PLAN OF CARE VITAL SIGNS MEDICATIONS Unknown Medications PROCEDURES No Known procedures RESULTS No Results REASON FOR VISIT appt. Insurance Providers [facility] Health Member Patient Patient Patient Patient Patient Subscriber Subscriber Subscriber Group Insurance Plan Plan Plan Plan ID Relationship Address Phone Name Date of ID Name Date of No Type Insurance Insurance Insurance Coverage to Subscriber Address Phone Name Dates Medicaid [address] [phone] Medicaid self [place] [id number] [facility] [address] [place] [address] [place] [phone] Ayden self Geneviev [id number] Medicaid [id number] Medicaid e [place] [address] [employer] [phone] [employer] self [place]eviev [id number] [id number] BCBS e 0 [place] [facility] [place] [address] [address] [address] [place] [phone] Case self [place]eviev [id number] Management [place] 02 Management e [facility] [address] [facility] [place] [phone] Ayden self [place]ev[place] [id number] Medicaid [place] 47 [place] [id number] Medical [place] MEDICAL (GENERAL) HISTORY Type Description Date Medical History acid reflux Surgical History Hospitalization History
--- OUTSIDE RECORDS SUMMARY | 2019-07-03 14:13 | XMS REPORT | Continuity of Care Document ---
:1990 External Reference #:[id number] Author Name Mikael Santos MD (transmitted by agent of provider Abigail Butts) Address [address] [place] [address] Care Team Providers Name Role Phone Hayder Erickson MD - Allergy & Care Team Information Life Skills Trainer Immunology Gab Rhodes MD - Family Medicine Care Team Information Life Skills Trainer Problems Active Problems Provider Date Mild depression Sadie Virk NP Onset: 08/09/2017 Body mass index 30+ - obesity James Logan M.D.,FACP Onset: 11/06/2017 Social History Type Date Description Comments Sex Unknown Tobacco Use Start: Unknown Never Smoked Cigarettes ETOH Use Occasionally consumes alcohol Tobacco Use Start: Unknown Patient has never smoked Recreational Drug Use Denies Drug Use Smoking Status Reviewed: 06/07/19 Patient has never smoked Exercise Type/Frequency Exercises regularly 3x week dance Allergies, Adverse Reactions, Alerts Active Allergies Reaction Severity Comments Date Amoxicillin full body rash 07/20/2017 Penicillin rash 07/20/2017 Zithromax Moderate stomach upset 08/09/2017 Bactrim Severe full body rash 10/23/2017 Erythromycin Severe stomach upset 10/23/2017 Cefaclor Nausea and Vomiting 01/30/2018 Medications Active Medications SIG Qnty Indications Ordering Provider Date Acarbose 1 tablet 3 times 90tabs E16.1 Mikael Santos MD 06/07/2019 25mg Tablets daily with meals Xyzal Allergy 24HR 1 by mouth every Unknown 5mg day Tablets Proair HFA 2 puffs by mouth Unknown 108(90Base) every 4 hours as mcg/Act Aerosol needed Freestyle Lite Test test blood sugar Unknown 3 times daily Strips and as needed Flintstones Complete 2 by mouth every Unknown day 60mg Chewtabs Omeprazole 1 by mouth every Unknown 20mg day Capsules DR Biotin 1 by mouth once Unknown 5000mcg Capsules a day Vitamin B1 1 by mouth every Unknown 100mg day Tablets Culturelle Digestive 1 po daily Unknown Health Probiotic Capsules Vitamin D3 Gummies 2 by mouth daily Unknown Adult 1000Unit Chewtabs Allay Stress Vitamin Unknown HM Vitamin B12 1 by mouth every Unknown 500mcg day Tablets CVS B6 take one Unknown 100mg Tablets capsule/tablet daily by mouth Medications Administered in Office Medication SIG Qnty Indications Ordering Provider Date Hepatitis B,Unspecified Unknown 11/09/1996 Injection Hepatitis B,Unspecified Unknown 01/31/1996 Injection Polio,Unspecified Unknown 11/17/1992 Injection Hib,Unspecified Unknown 11/17/1992 Injection Polio,Unspecified Unknown 07/14/1992 Injection Hib,Unspecified Unknown 07/14/1992 Injection Hib,Unspecified Unknown 1991 Injection Polio,Unspecified Unknown 1991 Injection Polio,Unspecified Unknown 1991 Injection Hib,Unspecified Unknown 1991 Injection Hepatitis B,Unspecified Unknown 1991 Injection Polio,Unspecified Unknown 1991 Injection Hib,Unspecified Unknown 1991 Injection Immunizations CPT Code Status Date Vaccine Lot # [id number] Given 01/31/1996 Tdap - Tetanus/Diptheria/Acellular Pertussis 82612 Given 01/31/1996 Measles Mumps And Rubella MMR 02893 Given 11/17/1992 Tdap - Tetanus/Diptheria/Acellular Pertussis 12934 Given 07/14/1992 Measles Mumps And Rubella MMR 38104 Given 1991 Tdap - Tetanus/Diptheria/Acellular Pertussis 36705 Given 1991 Tdap - Tetanus/Diptheria/Acellular Pertussis 73307 Given 1991 Tdap - Tetanus/Diptheria/Acellular Pertussis Vital Signs Date Vital Result Comment 06/07/2019 12:38pm Height 64 inches 5'4" Weight 137.00 lb reported Heart Rate 59 /min BP Systolic Sitting 96 mmHg BP Diastolic Sitting 67 mmHg BMI (Body Mass Index) 23.5 kg/m2 05/24/2019 1:15pm Height 64 inches 5'4" Results Test Date Facility Test Result H/L Range Note Laboratory test 05/23/2019 [facility] Glucose 59 mg/dL Low 70- 100 1, [address] [place] [address] [phone] Laboratory test 05/23/2019 [facility] C-Peptide 4.5 ng/mL Abnormal 1.1 - 4.4 3, [address] [place] [address] [phone] Insulin Level 9.0 mcIU/mL Normal 2.0-16.0 5 Proinsulin 24 pmol/L Abnormal 3.6-22 6 Glucose 39 mg/dL Critical low 70-100 7 Laboratory test 05/23/2019 [facility] Glucose 71 mg/dL Normal 70-100 8, [address] [place] [address] [phone] Laboratory test 05/23/2019 [facility] Vitamin D 43.3 Normal 20 -50 10 finding [address] [facility] Total ng/[place] [address] 25(Oh) [phone] CBC Auto Diff 05/23/2019 [facility] White Blood 5.5 Normal 3.5 -10.[address] Count 10^3/[place] [address] [phone] Red Blood Count 4.45 10^6/uL Normal 3.70-4.87 Hemoglobin 13.0 g/dL Normal 12.0-16.0 Hematocrit 40 % Normal 35-47 Mean Corpuscular Volume 89 fL Normal 80-97 Mean Corpuscular Hemoglobin 29 pg Normal 27-31 Mean Corpuscular HGB Conc 33 g/dL Normal 31-36 Red Cell Distribution Width 14 % Normal 10-15 Platelet Count 180 10^3/uL Normal 150-450 Mean Platelet Volume 10.0 fL Normal 7.4-10.4 Abs Neutrophils 3.7 10^3/uL Normal 1.5-7.7 Abs Lymphocytes 1.3 10^3/uL Normal 1.0-4.8 Abs Monocytes 0.4 10^3/uL Normal 0-0.8 Abs Eosinophils 0.1 10^3/uL Normal 0-0.6 Abs Basophils 0.0 10^3/uL Normal 0-0.2 Abs Nucleated RBC 0.0 10^3/uL Granulocyte % 66.7 % Lymphocyte % 23.6 % Monocyte % 7.3 % Eosinophil % 1.6 % Basophil % 0.8 % Nucleated Red Blood Cells % 0.0 Laboratory test 05/23/2019 [facility] Hemoglobin A1c 5.0 % Normal 4.0-5.6 11 finding [address] [facility] (Glyco HGB) [place] [address] [phone] Pthi 05/23/2019 [facility] Calcium (PTH 8.9 Normal 8.6-10.3 [facility] Intact) mg/[place] [address] [phone] PTH Intact 30.7 pg/mL Normal 12-88 Laboratory test 05/23/2019 [facility] Glucose 69 mg/dL Low 70- 100 12 finding [address] [place] [address] [phone] Cortisol 9.66 g/dL 13 Insulin Level 3.9 mcIU/mL Normal 2.0-16.0 14 TSH (Thyroid Stim Horm) 1.64 mcIU/mL Normal 0.34-5.60 15 Iron & Iron Binding 05/23/2019 [facility] Iron 61 g/dL Normal 50-212 [address] [place] [address] [phone] Unsaturated Iron Binding < 296 g/dL Total Iron Binding Capacity 311 g/dL Normal 250-450 Transferrin 222 mg/dL Normal 203-362 % Iron Saturation 20 % Normal 15-55 Laboratory test 05/23/2019 [facility] Ferritin 31.9 ng/mL Normal 11-307 finding [address] [place] [address] [phone] Folic Acid (Folate) 10.33 ng/mL >3.99 Vitamin B12 425 pg/mL Normal 180-914 16 Vitamin D Total 25(Oh) 42.9 ng/mL Normal 20-50 17 Comp Metabolic 05/23/2019 [facility] Sodium 140 mmol/L Normal 135-145 [address] [place] [address] [phone] Potassium 3.7 mmol/L Normal 3.5-5.0 Chloride 108 mmol/L Normal 101-111 Co2 Carbon Dioxide 27 mmol/L Normal 22-32 Anion Gap 5 mmol/L Normal 2-11 Calcium 9.2 mg/dL Normal 8.6-10.3 Albumin 3.9 g/dL Normal 3.2-5.2 Total Bilirubin 0.40 mg/dL Normal 0.2-1.0 Blood Urea Nitrogen 14 mg/dL Normal 6-24 Creatinine 0.52 mg/dL Normal 0.51-0.95 BUN/Creatinine Ratio 26.9 High 8-20 Total Protein 6.4 g/dL Normal 6.4-8.9 Globulin 2.5 g/dL Normal 2-4 Albumin/Globulin Ratio 1.6 Normal 1-3 Alkaline Phosphatase 41 U/L Normal 34-104 Alt 14 U/L Normal 7-52 Ast 15 U/L Normal 13-39 Egfr Non- 140.4 >60 Egfr 169.9 >60 18 Laboratory test 05/23/2019 [facility] Vitamin E 10.1 mg/L 5.5 - 17.0 [address] [place] [address] [phone] Vitamin B1 (Whole Blood) 107 nmol/L 70-180 20 C-Peptide 2.1 ng/mL 1.1 - 4.4 21 Acetone,Serum (Ketones) <0.1 mmol/L <0.4 22 Proinsulin 7.7 pmol/L 3.6-22 23 CBC Auto 12/27/2018 [facility] White Blood 5.3 10^3/uL Normal 3.5-10.[address] [place] [address] [phone] Red Blood Count 4.44 10^6/uL Normal 3.70-4.87 Hemoglobin 13.2 g/dL Normal 12.0-16.0 Hematocrit 40 % Normal 33-41 Mean Corpuscular Volume 90 fL Normal 80-97 Mean Corpuscular Hemoglobin 30 pg Normal 27-31 Mean Corpuscular HGB Conc 33 g/dL Normal 31-36 Red Cell Distribution Width 14 % Normal 10.5-15 Platelet Count 214 10^3/uL Normal 150-450 Mean Platelet Volume 10.6 fL High 7.4-10.4 Abs Neutrophils 3.0 10^3/uL Normal 1.5-7.7 Abs Lymphocytes 1.8 10^3/uL Normal 1.0-4.8 Abs Monocytes 0.3 10^3/uL Normal 0-0.8 Abs Eosinophils 0.1 10^3/uL Normal 0-0.6 Abs Basophils 0 10^3/uL Normal 0-0.2 Abs Nucleated RBC 0 10^3/uL Granulocyte % 57.1 % Lymphocyte % 34.4 % Monocyte % 6.4 % Eosinophil % 1.6 % Basophil % 0.5 % Nucleated Red Blood Cells % 0.1 Comp Metabolic 12/27/2018 [facility] Sodium 142 mmol/L Normal 135-145 [address] [place] [address] [phone] Potassium 3.8 mmol/L Normal 3.5-5.0 Chloride 107 mmol/L Normal 101-111 Co2 Carbon Dioxide 28 mmol/L Normal 22-32 Anion Gap 7 mmol/L Normal 2-11 Glucose 80 mg/dL Normal 70-100 Blood Urea Nitrogen 13 mg/dL Normal 6-24 Creatinine 0.65 mg/dL Normal 0.51-0.95 BUN/Creatinine Ratio 20.0 Normal 8-20 Calcium 9.4 mg/dL Normal 8.6-10.3 Total Protein 6.7 g/dL Normal 6.4-8.9 Albumin 4.1 g/dL Normal 3.2-5.2 Globulin 2.6 g/dL Normal 2-4 Albumin/Globulin Ratio 1.6 Normal 1-3 Total Bilirubin 0.50 mg/dL Normal 0.2-1.0 Alkaline Phosphatase 49 U/L Normal 34-104 Alt 14 U/L Normal 7-52 Ast 17 U/L Normal 13-39 Egfr Non- 109.3 >60 Egfr 132.3 >60 24 Iron & Iron Binding 12/27/2018 [facility] Iron 97 g/dL Normal 50-212 [address] [place] [address] [phone] Unsaturated Iron Binding < 269 g/dL Total Iron Binding Capacity 284 g/dL Normal 250-450 Transferrin 203 mg/dL Normal 203-362 % Iron Saturation 34 % Normal 15-55 Laboratory test 12/27/2018 [facility] Ferritin 94.0 ng/mL Normal 11-307 finding [address] [place] [address] [phone] Folic Acid (Folate) > 20.00 ng/mL >3.99 Vitamin B12 755 pg/mL Normal 180-914 25 Vitamin D Total 25(Oh) 62.9 ng/mL High 20-50 Vitamin B1 (Whole Blood) 244 nmol/L Abnormal 70-180 26 Vitamin E Level 15.2 mg/L 5.5 - 17.0 27 1 Comment: 90 min 2 Comment: 90 min 3 Comment: 60 min 4 Test Performed by: [facility] [place] [address] 5 Physician Instructions 60 min 6 ADDITIONAL INFORMATION This test was developed and its performance characteristics determined by [facility] in a manner consistent with CLIA requirements. This test has not been cleared or approved by the U.S. Food and Drug Administration. Test Performed by: [facility] [place] [address] Loop Tacker: Kraig Lyons M.D. Ph.D.; CLIA# [id number] 7 Critical Result [id number] Called to [id number] at: 11:46:26 by:[id number] Read back by:[email or web address] Comment: 30 min 9 Comment: 30 min 10 Total 25-Hydroxyvitamin D2 and D3 (25-OH-VitD) <10 ng/mL (severe deficiency) 10-19 ng/mL (mild to moderate deficiency) 20-50 ng/mL (optimum levels) 51-80 ng/mL (increased risk of hypercalciuria) >80 ng/mL (toxicity possible) 11 Therapeutic target for the treatment of diabetes mellitus patients is <7% HBA1C, and in selective patients <6.0%. Please refer to [place] [employer] diabetic care guidelines for further information. 12 Comment: baseline 13 AM 8.7-22.4 PM <10 14 Comment: baseline 15 Comment: baseline 16 Normal Range 180 to 914 Indeterminate Range 145 to 180 Deficient Range <145 17 Total 25-Hydroxyvitamin D2 and D3 (25-OH-VitD) <10 ng/mL (severe deficiency) 10-19 ng/mL (mild to moderate deficiency) 20-50 ng/mL (optimum levels) 51-80 ng/mL (increased risk of hypercalciuria) >80 ng/mL (toxicity possible) 18 Because ethnic data is not always readily [...] 15-29 5 Kidney failure <15 (or dialysis) 19 ADDITIONAL INFORMATION This test was developed and its performance characteristics determined by [facility] in a manner consistent with CLIA requirements. This test has not been cleared or approved by the U.S. Food and Drug Administration. Test Performed by: [facility] [place] [address] 20 ADDITIONAL INFORMATION This test was developed and its performance characteristics determined by [facility] in a manner consistent with CLIA requirements. This test has not been cleared or approved by the U.S. Food and Drug Administration. Test Performed by: [facility] [place] [address] Loop Tacker: Kraig Lyons M.D. Ph.D.; CLIA# [id number] 21 Test Performed by: [place] [address] 22 Test Performed by: [facility] - [address] [address] 23 ADDITIONAL INFORMATION This test was developed and its performance characteristics determined by [facility] in a manner consistent with CLIA requirements. This test has not been cleared or approved by the [place].S. Food and Drug Administration. Test Performed by: [facility] [place] [address] Loop Tacker: Kraig Lyons M.D. Ph.D.; CLIA# [id number] 24 Because ethnic data is not always readily [...] 15-29 5 Kidney failure <15 (or dialysis) 25 Normal Range 180 to 914 Indeterminate Range 145 to 180 Deficient Range <145 26 ADDITIONAL INFORMATION This test was developed and its performance characteristics determined by [facility] in a manner consistent with CLIA requirements. This test has not been cleared or approved by the U.S. Food and Drug Administration. Test Performed by: [facility] [employer] - [address] [address] 27 ADDITIONAL INFORMATION This test was developed and its performance characteristics determined by [facility] in a manner consistent with CLIA requirements. This test has not been cleared or approved by the U.S. Food and Drug Administration. Test Performed by: [facility] - [address] [address] Procedures Description No Information Available Medical Devices Description No Information Available Encounters Type Date Location Provider Dx Diagnosis Office Visit 03/22/2019 [facility] Mikael Santos MD E16.1 Other hypoglycemia 10:00a [facility] Z98.84 Bariatric surgery status Assessments Date Code Description Provider 06/07/2019 E16.1 Other hypoglycemia Mikael Santos MD 06/07/2019 Z98.84 Bariatric surgery status Mikael Santos MD 03/22/2019 E16.1 Other hypoglycemia Mikael Santos MD 03/22/2019 Z98.84 Bariatric surgery status Mikael Santos MD Plan of Treatment 06/07/2019 - Mikael Santos MDE16.1 Other hypoglycemiaNew Medication:Acarbose 25 mg - 1 tablet 3 times daily with hiqbtH07.84 Bariatric surgery status Functional Status Description No Information Available Mental Status Description No Information Available Referrals Description No Information Available
[2019-07-03 14:57] LABS: ABS Basophils 0.1 10^3/ul (0-0.2); ABS Eosinophils 0.1 10^3/ul (0-0.6); ABS Lymphocytes 1.9 10^3/ul (1.0-4.8); ABS Monocytes 0.5 10^3/ul (0-0.8); ABS Neutrophils 3.8 10^3/ul (1.5-7.7); Eosinophil % 1.4 %; Hematocrit 40 % (35-47); Hemoglobin 13.5 g/dL (12.0-16.0); Lymphocyte % 30.3 %; Mean Corpuscular HGB Conc 34 g/dL (31-36); Mean Corpuscular Hemoglobin 30 pg (27-31); Mean Corpuscular Volume 88 fL (80-97); Mean Platelet Volume 10.4 fL (7.4-10.4); Nucleated Red Blood Cells % 0.1; Platelet Count 195 10^3/uL (150-450); Red Blood Count 4.58 10^6 /uL (3.70-4.87); Red Cell Distribution Width 13 % (10-15); White Blood Count 6.4 10^3/uL (3.5-10.8)
[2019-07-03 15:32] LABS: TSH (Thyroid Stimulating Horm) 1.31 mcIU/mL (0.34-5.60)
[2019-07-03 15:38] LABS: ALT 20 U/L (7-52); AST 19 U/L (13-39); Albumin 4.1 g/dL (3.2-5.2); Albumin/Globulin Ratio 1.4 (1-3); Alkaline Phosphatase 31 U/L (34-104); Anion Gap 6 mmol/L (2-11); BUN/Creatinine Ratio 25.4 (8-20); Blood Urea Nitrogen 16 mg/dL (6-24); CO2 Carbon Dioxide 26 mmol/L (22-32); Chloride 107 mmol/L (101-111); EGFR African American 136.2 (>60); EGFR Non-African American 112.5 (>60); Globulin 2.9 g/dL (2-4); Glucose 86 mg/dL (70-100); Potassium 3.6 mmol/L (3.5-5.0); Sodium 139 mmol/L (135-145)
[2019-07-03 15:40] LABS: Alcohol < 10 mg/dL (<10)
== END 2019-07-03 15:44 | disposition left against medical advice (07) ==
LOC: ED 13:54
DX: R55 Syncope and collapse (principal); Z53.21 Procedure and treatment not carried out due to patient leaving prior to being seen by health care provider
CPT/HCPCS: 36415; 70450; 80053; 80320; 83605; 83735; 84443; 84484; 85025; 93005; 99281; G0480

== ENCOUNTER 2021-05-20 10:58 | Inpatient (IN) ==
[~2021-05-20 10:58] MED LIST changes: -Buffered Lidocaine 0.9% SYRIN* 5 ML/SYR SYRINGE INTRADERM ONE; +Buffered Lidocaine 1% SYRIN 1 ml INTRADERM ONE; +Lactated Ringers 1000 ml BAG 1,000 ML IV SCH
[2021-05-20] MEDS ORDERED: Bupivacaine 0.25% SDV 30 ML ONE (11:02)
[2021-05-20] MEDS ORDERED: Methylene Blue 0.5 % 50 MG/10 ML AMP IV ONE (11:07)
[2021-05-20] MEDS ORDERED: Heparin 5000 UNITS/ML 1 mL VIAL ONE (11:26)
[2021-05-20] MEDS ORDERED: Clindamycin 900 MG/D5W BAG 900 MG/50 ML BAG IVPB ONE (11:27)
[2021-05-20] MEDS ORDERED: Buffered Lidocaine 1% SYRIN 1 ml INTRADERM ONE (11:42)
[2021-05-20] MEDS ORDERED: Lidocaine 2% PF 5 ML VIAL ONE (11:57)
[2021-05-20] MEDS ORDERED: fentaNYL 100 mcg/2 ml 50 MCG/ML VIAL ONE ×2 (11:57→14:10)
[2021-05-20] MEDS ORDERED: Propofol 10 MG/ML 20 ML BTL ONE ×2 (11:57→12:52)
[2021-05-20] MEDS ORDERED: Succinylcholine 200 mg VIAL 20 mg/ml 10 ml VIAL (200 mg) ONE (11:57)
[2021-05-20] MEDS ORDERED: Rocuronium 50 mg VIAL 10 mg/ml 5 ml VIAL (50 mg) ONE ×2 (11:57→13:17)
[2021-05-20] MEDS ORDERED: Midazolam 2 mg/2 ml VIAL 1 mg/ml 2 ml VIAL (2 mg) ONE (11:57)
[2021-05-20] MEDS ORDERED: Dexamethasone IV 4 MG/ML VIAL 1 ml VIAL ONE (12:51)
[2021-05-20] MEDS ORDERED: Acetaminophen IV 1 GM/100ML 100 ML IV ONE (14:51)
[2021-05-20] MEDS ORDERED: Metoclopramide 5 MG/ML VIAL (10 mg) ONE (15:02)
[2021-05-20] MEDS ORDERED: Ondansetron 4 mg VIAL 2 MG/ML 2 ml VIAL ONE (15:02)
[2021-05-20] MEDS ORDERED: Sugammadex 500 MG/5 ML 5 ml VIAL IV PUSH ONE (15:04)
[2021-05-20] MEDS ORDERED: HYDROmorphone 0.5 MG/0.5 ML SYRINGE IV SLOW PU PRN (15:12)
[2021-05-20] MEDS ORDERED: HYDROmorphone 1 MG/1 ML SYRINGE IV SLOW PU PRN (15:12)
[2021-05-20] MEDS ORDERED: Ondansetron 4 mg VIAL 2 MG/ML 2 ml VIAL IV PRN (15:12)
[2021-05-20] MEDS ORDERED: diPHENhydraMINE IV 50 MG/ML 1 ml VIAL (BENADRYL) SLOW PUSH PRN (15:12)
[2021-05-20] MEDS ORDERED: Naloxone 0.4 mg VIAL 0.4 mg/ml 1 ml VIAL IV PRN (15:27)
[2021-05-20] MEDS ORDERED: fentaNYL 100 mcg/2 ml 50 MCG/ML VIAL IV PRN (15:27)
[2021-05-20] MEDS ORDERED: DiMENhydriNATE IV 50 mg/ml 1 ml VIAL IV PUSH PRN (15:27)
[2021-05-20] MEDS ORDERED: DiMENhydriNATE IV 50 mg/ml 1 ml VIAL ONE (16:12)
[2021-05-20] MEDS: Lactated Ringers 1000 ml BAG 1,000 ML IV SCH ×2 (16:43→23:29)
[2021-05-20] MEDS: Famotidine IV 10 MG/ML 2 ml VIAL (20 mg) IV SLOW PU SCH (19:56)
[2021-05-20] MEDS: Heparin 5000 UNITS/ML 1 mL VIAL SUBCUT SCH (22:11)
[2021-05-21] MEDS: Heparin 5000 UNITS/ML 1 mL VIAL SUBCUT SCH ×3 (06:09→22:41)
[2021-05-21] MEDS: Lactated Ringers 1000 ml BAG 1,000 ML IV SCH ×2 (06:10→14:11)
[2021-05-21] MEDS: Famotidine IV 10 MG/ML 2 ml VIAL (20 mg) IV SLOW PU SCH ×2 (08:24→20:41)
[2021-05-21] MEDS ORDERED: HYDROcodone/ACET. 7.5/325 LIQ 15 ML UDC PO PRN (15:34)
[2021-05-21] MEDS: D5W 1/2 NS KCl 20 meq 1000 ml 1,000 ML IV SCH (20:48)
[2021-05-22] MEDS: D5W 1/2 NS KCl 20 meq 1000 ml 1,000 ML IV SCH (04:52)
[2021-05-22] MEDS: Heparin 5000 UNITS/ML 1 mL VIAL SUBCUT SCH (06:31)
[2021-05-22 08:59] VITALS: BP 106/69
== END 2021-05-22 09:38 | disposition home or self-care (01) | DRG 222 ==
LOC: AA 10:58 → SSU 16:55
PROVIDERS: ADMIT Surgery; ATTEND Surgery